=== PATIENT | female | born 1940 | race Caucasian/White ===

== ENCOUNTER → 2016-06-03 | Outpatient (CLI) | payer MEDICARE, BC ==
--- NOTE | 2016-06-03 23:02 | MR ---
EXAMINATION TYPE: MR lumbar spine wo con DATE OF EXAM: 06/03/2016 9:37 PM COMPARISON: NONE HISTORY: Uterine cancer with abnormal imaging per order. Left buttocks pain per patient. TECHNIQUE: Multiplanar, multisequence imaging of the lumbar spine is performed without IV contrast. I V contrast cannot be given due to poor renal function. FINDINGS: Exam is suboptimal as there is marked artifact present. Survey images shows splenomegaly. S agittal images of the lumbar spine show vertebral body heights and alignment to appear satisfactory. There is multilevel disc desiccation with relative sparing of L4-L5 level. Disc space heights are mayela rly well-maintained. No significant posterior disc herniations are seen on sagittal images. The conu s medullaris is not identified with certainty. The bone marrow signal intensity is abnormal with mar ked low T1 and T2 signal diffusely identified. Axial images are markedly suboptimal. There is suggestion of multilevel fairly moderate facet arthrop athy mid to lower lumbar levels. There is some cortical thinning in both kidneys present. Central cys tic change of right kidney is suspicious for underlying hydronephrosis, follow-up advised. IMPRESSION: Markedly suboptimal study, marked low T1 and T2 signal raises concern for myeloproliferat jhon disorder especially given finding of splenomegaly. Clinical correlation advised. Possible moderat e to severe right-sided hydronephrosis. Renal ultrasound follow-up advised.
== END | disposition home or self-care (01) ==
LOC: RADMRIMAIN 19:42
PROVIDERS: ATTEND Internal Medicine Hematology & Oncology
DX: C54.9 Malignant neoplasm of corpus uteri, unspecified (principal)
CPT/HCPCS: 72148; 82565

== ENCOUNTER 2016-09-23 13:00 | Inpatient (IN) | payer MEDICARE, BC ==
[2016-09-23] MEDS ORDERED: SODIUM CHLORIDE 0.9% 1,000 ML IV ONE ×2 (14:10→15:05)
[2016-09-23 14:14] LABS: Anisocytosis Slight; Basophils # (A) 0.1 k/uL (0-0.2); Basophils % (A) 1 %; CHCM 30.7; Eosinophils # (A) 0.2 k/uL (0-0.7); Eosinophils % (A) 2 %; HCT 32.8 % (34.0-46.0); HDW 3.18; HGB 10.1 gm/dL (11.4-16.0); Hypochromasia Moderate; Luc # (Auto) 0.12; Luc % (Auto) 1; Lymphocytes # (A) 0.5 k/uL (1.0-4.8); Lymphocytes % (A) 5 %; MCH 32.1 pg (25.0-35.0); MCHC 30.7 g/dL (31.0-37.0); MCV 104.7 fL (80.0-100.0); Macrocytosis Moderate; Mean Platelet Volume 7.8; Monocytes # (A) 0.5 k/uL (0-1.0); Monocytes % (A) 4 %; Neutrophils # (A) 10.2 k/uL (1.3-7.7); Neutrophils % (A) 88 %; RBC 3.14 m/uL (3.80-5.40); RDW 17.8 % (11.5-15.5); WBC 11.6 k/uL (3.8-10.6); WBC (Perox) 12.09
--- NOTE | 2016-09-23 14:14 | ED ---
General Adult HPI - General Chief complaint: Wound/Laceration Stated complaint: wound infection Time Seen by Provider: 09/23/16 13:34 Source: patient, family, RN notes reviewed Mode of arrival: wheelchair Limitations: no limitations - History of Present Illness Initial comments: The patient is 76-year-old female presents to the emergency room for evaluation of infected wound over her right hip area. Patient states the wounds started off as small boils. Patient states that she originally was diagnosed with shingles. Patient states the areas have became extremely infected. Patient states she's been treated with antibiotics and valacyclovir. Patient states she has been following up at the [facility] with Dr. Angelo. Patient states today they rechecked her wounds and told her to come to the emergency room to be admitted and have the areas debrided. Patient states a few of the wounds have turned black. Patient states the areas were packed and covered at the wound center. Patient denies fevers or chills. Patient denies headache or dizziness. Patient denies nausea or vomiting. - Related Data Home Medications Medication Instructions Recorded Confirmed Atenolol [Tenormin] 12.5 mg PO DAILY 06/26/14 09/23/16 Gabapentin [Neurontin] 300 mg PO TID 06/26/14 09/23/16 Glimepiride [Amaryl] 1.5 mg PO BID 06/26/14 09/23/16 Insulin Glargine [Lantus] 12 unit SQ HS 06/26/14 09/23/16 Pravastatin Sodium [Pravachol] 20 mg PO HS 06/26/14 09/23/16 Aspirin [Low Dose Aspirin EC] 81 mg PO DAILY 09/16/16 09/23/16 Cyclobenzaprine [Flexeril] 10 mg PO HS 09/16/16 09/23/16 Sevelamer HCl [Renagel] 400 mg PO DAILY 09/16/16 09/23/16 Nfyxt-Z-Xaivdgnalonvh [Beano] 600 unit PO AC-TID 09/23/16 09/23/16 Docusate [Colace] 100 mg PO DAILY 09/23/16 09/23/16 Ergocalciferol [Vitamin D2] 50,000 unit PO MO 09/23/16 09/23/16 Megabind 1 dose PO DIRECTED 09/23/16 09/23/16 Midodrine HCl [ProAmatine] 10 mg PO MOWEFR 09/23/16 09/23/16 Allergies Allergy/AdvReac Type Severity Reaction Status Date / Time ciprofloxacin [From Cipro] Allergy Swelling Verified 09/23/16 14:00 ciprofloxacin HCl Allergy Swelling Verified 09/23/16 14:00 [From Cipro] Penicillins Allergy Rash/Hives Verified 09/23/16 14:00 adhesive AdvReac SKIN Verified 09/23/16 14:00 IRRITATION Review of Systems ROS Statement: Those systems with pertinent positive or pertinent negative responses have been documented in the HPI. ROS Other: All systems not noted in ROS Statement are negative. 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 DIALYSIS Thu, DIALYSIS PORT RIGHT ARM. PORT A CATH LEFT CHEST. HX DVT LAILA LEGS History of Any Multi-Drug Resistant Organisms: MRSA Date of last positivie culture/infection: 04/27/2011 MDRO Source:: SPUTUM/LUNGS Past Surgical History: Bladder Surgery, Bowel Resection, Hysterectomy, Joint Replacement, Orthopedic Surgery Additional Past Surgical History / Comment(s): LAILA KNEE REPLACEMENT, LEFT FOOT FUSION, LEFT CATARACT REMOVED, STENTS IN KIDNEY, UROSTOMY, COLOSTOMY, DIALYSIS PORT, PORT A CATH Past Anesthesia/Blood Transfusion Reactions: No Reported Reaction Past Psychological History: No Psychological Hx Reported Smoking Status: Never smoker Past Alcohol Use History: Rare Past Drug Use History: None Reported - Past Family History Mother Additional Family Medical History / Comment(s): in a motor vehicle accident Father Family Medical History: Unable to Obtain General Exam - General Exam Comments Initial Comments: Sitting in exam room, no acute distress. Limitations: no limitations General appearance: alert, in no apparent distress Head exam: Present: atraumatic, normocephalic, normal inspection Eye exam: Present: normal appearance ENT exam: Present: normal exam Neck exam: Present: normal inspection Respiratory exam: Present: normal lung sounds bilaterally. Absent: respiratory distress Cardiovascular Exam: Present: regular rate, normal rhythm, normal heart sounds Right Upper Leg exam: Absent: normal inspection (necrosing ulcerating lesions on the lateral upper leg with surrounding erythema. ) Knee exam: Present: normal inspection Lower Leg exam: Present: normal inspection Ankle exam: Present: normal inspection Neurovascular tendon exam: Present: no vascular compromise. Absent: pulse deficit, abnormal cap refill Back exam: Present: normal inspection Neurological exam: Present: alert, oriented X3, CN II-XII intact Psychiatric exam: Present: normal affect, normal mood Skin exam: Present: warm, dry Course Vital Signs 09/23/16 09/23/16 13:14 15:00 Temperature 97.5 F L 98.2 F Pulse Rate 60 63 Respiratory 20 18 Rate Blood Pressure 94/50 104/54 O2 Sat by Pulse 100 97 Oximetry Medical Decision Making - Medical Decision Making Patient is a 76-year-old female presents emergency room for evaluation of infected right hip wound. Lactic 2.5. WBC slightly elevated. Patient will be admitted with IV antibiotics. Patient does have a hx of CKF and is on dialysis 3 times a week. Will consult Nephrology. Dr. Tsang discussed case with Dr. Angelo and Suraj. - Lab Data Result diagrams: 09/23/16 13:35 09/23/16 13:35 Lab Results 09/23/16 09/23/16 09/23/16 Range/Units 13:35 13:35 13:35 WBC 11.6 H (3.8-10.6) k/uL RBC 3.14 L (3.80-5.40) m/uL Hgb 10.1 L (11.4-16.0) gm/dL Hct 32.8 L (34.0-46.0) % MCV 104.7 H (80.0-100.0) fL MCH 32.1 (25.0-35.0) pg MCHC 30.7 L (31.0-37.0) g/dL RDW 17.8 H (11.5-15.5) % Plt Count 143 L (150-450) k/uL Neutrophils % 88 % Lymphocytes % 5 % Monocytes % 4 % Eosinophils % 2 % Basophils % 1 % Neutrophils # 10.2 H (1.3-7.7) k/uL Lymphocytes # 0.5 L (1.0-4.8) k/uL Monocytes # 0.5 (0-1.0) k/uL Eosinophils # 0.2 (0-0.7) k/uL Basophils # 0.1 (0-0.2) k/uL Hypochromasia Moderate Anisocytosis Slight Macrocytosis Moderate Sodium 136 L (137-145) mmol/L Potassium 3.6 (3.5-5.1) mmol/L Chloride 94 L (98-107) mmol/L Carbon Dioxide 28 (22-30) mmol/L Anion Gap 14 mmol/L BUN 29 H (7-17) mg/dL Creatinine 3.00 H (0.52-1.04) mg/dL Est GFR (MDRD) Af Amer 18 (>60 ml/min/1.73 sqM) Est GFR (MDRD) Non-Af 15 (>60 ml/min/1.73 sqM) Glucose 201 H (74-99) mg/dL POC Glucose (mg/dL) (75-99) mg/dL POC Glu Mixing Machine Tender Cork Gasket ID Plasma Lactic Acid Cameron 2.5 H* (0.7-2.0) mmol/L Calcium 9.0 (8.4-10.2) mg/dL Total Bilirubin 2.0 H (0.2-1.3) mg/dL AST 30 (14-36) U/L ALT 25 (9-52) U/L Alkaline Phosphatase 238 H (38-126) U/L C-Reactive Protein 196.7 H (<10.0) mg/L Total Protein 6.8 (6.3-8.2) g/dL Albumin 3.2 L (3.5-5.0) g/dL 09/23/16 Range/Units 15:10 WBC (3.8-10.6) k/uL RBC (3.80-5.40) m/uL Hgb (11.4-16.0) gm/dL Hct (34.0-46.0) % MCV (80.0-100.0) fL MCH (25.0-35.0) pg MCHC (31.0-37.0) g/dL RDW (11.5-15.5) % Plt Count (150-450) k/uL Neutrophils % % Lymphocytes % % Monocytes % % Eosinophils % % Basophils % % Neutrophils # (1.3-7.7) k/uL Lymphocytes # (1.0-4.8) k/uL Monocytes # (0-1.0) k/uL Eosinophils # (0-0.7) k/uL Basophils # (0-0.2) k/uL Hypochromasia Anisocytosis Macrocytosis Sodium (137-145) mmol/L Potassium (3.5-5.1) mmol/L Chloride (98-107) mmol/L Carbon Dioxide (22-30) mmol/L Anion Gap mmol/L BUN (7-17) mg/dL Creatinine (0.52-1.04) mg/dL Est GFR (MDRD) Af Amer (>60 ml/min/1.73 sqM) Est GFR (MDRD) Non-Af (>60 ml/min/1.73 sqM) Glucose (74-99) mg/dL POC Glucose (mg/dL) 137 H (75-99) mg/dL POC Glu Mixing Machine Tender Cork Gasket ID Taye Suze Plasma Lactic Acid Cameron (0.7-2.0) mmol/L Calcium (8.4-10.2) mg/dL Total Bilirubin (0.2-1.3) mg/dL AST (14-36) U/L ALT (9-52) U/L Alkaline Phosphatase (38-126) U/L C-Reactive Protein (<10.0) mg/L Total Protein (6.3-8.2) g/dL Albumin (3.5-5.0) g/dL Disposition Clinical Impression: Wound infection Disposition: ADMITTED IP TO THIS [facility] Condition: Stable Referrals: Tae Diane DO [Primary Care Provider] - 1-2 days Decision Date: 09/23/16
[2016-09-23 14:29] LABS: Potassium 3.6 mmol/L (3.5-5.1); Total Protein 6.8 g/dL (6.3-8.2)
[2016-09-23] MEDS ORDERED: AZTREONAM 2 GM in SODIUM CHLORIDE 0.9% 100 ML IVPB STA (14:55)
[2016-09-23] MEDS ORDERED: NALOXONE 0.4 MG/ML 1 ML VIAL IV PRN (14:56)
[2016-09-23] MEDS ORDERED: IV VANCOMYCIN PER PHARMACY 1 EACH MISC MISCELLANE PRN (15:02)
[2016-09-23 15:04] LABS: C Reactive Protein 196.7 mg/L (<10.0)
[2016-09-23 15:13] LABS: Glucose,Whole Blood 137 mg/dL (75-99)
[2016-09-23] MEDS ORDERED: VANCOMYCIN 1,500 MG in SODIUM CHLORIDE 0.9% 250 ML IVPB ONE (16:00)
[2016-09-23] MEDS: SODIUM CHLORIDE 0.9% 1,000 ML IV SCH (16:46)
[2016-09-23] MEDS: HYDROmorphone 1 MG/ML 1 ML SYRINGE IV PRN (18:38)
[2016-09-23] MEDS: INSULIN LISPRO (humaLOG) 300 UNIT/3 ML VIAL SQ SCH ×2 (18:43→22:02)
[2016-09-23 19:34] LABS: Particle Count 335966; WBC,Urine >182 /hpf (0-5)
[2016-09-23 19:43] LABS: Appearance,Urine Turbid (Clear)
[2016-09-23 19:45] LABS: UA Billing (MACRO vs. MICRO) MICRO
--- NOTE | 2016-09-23 20:51 | P.GSCN ---
History of Present Illness Reason for Consult: Decubitus right hip History of present illness: The patient is a 76-year-old white female who presents to the emergency room for evaluation of an infected wound of her right hip area. She has been seen in the wound clinic for this and has had failure of resolution and was therefore admitted for debridement. She states that was originally diagnosed as shingles. The area that became infected. She has been treated with antibiotics and valacyclovir. The patient states that the areas were packed and covered at the wound center. She denies fever or chills. Review of systems: Lungs: Prior PE cardiac: No history given GI: Patient has colostomy : Endometrial cancer with bladder and bowel history of chemo and radiation has colostomy and urostomy she also undergoes dialysis Thursday and Thursday Social history: Smoking: Negative Alcohol: Occasional Drug history: Negative Review of Systems - Constitutional Reports as per HPI - Respiratory Reports as per HPI - Gastrointestinal Reports as per HPI - Genitourinary Genitourinary Comment(s): Endometrial cancer Genitourinary: Reports as per HPI Past Medical History Past Medical History: Cancer, Diabetes Mellitus, Dialysis, Deep Vein Thrombosis (DVT), Hyperlipidemia, Osteoarthritis (OA), Pulmonary Embolus (PE), Renal Disease Additional Past Medical History / Comment(s): dx mar 1999 w/ENDOMETRIAL CA WENT TO [facility] had SX(COLOSTOMY/UROSTOMY) / CHEMO / RADIATION . DIALYSIS Thu, DIALYSIS PORT RIGHT ARM. PORT A CATH LEFT CHEST. HX DVT LAILA LEGS, anemia-"iron supplemtnts w/dialysis", murmur, sinus peoblems, hiatakl hernia, colon polyps. ?SHINGLES RECENTLY" ONE DR SAID IT WAS SHINGLES AND ANOTHER DID' NT THINK IT WAS", RT HIP WOUND History of Any Multi-Drug Resistant Organisms: MRSA Year Discovered:: 04/27/2011 MDRO Source:: SPUTUM/LUNGS Past Surgical History: Bladder Surgery, Bowel Resection, Heart Catheterization, Hysterectomy, Joint Replacement, Orthopedic Surgery, Tonsillectomy Additional Past Surgical History / Comment(s): LAILA KNEE REPLACEMENT, LEFT FOOT FUSION,LAILA CATARACTS REMOVED, STENTS IN KIDNEY, UROSTOMY, COLOSTOMY, DIALYSIS PORT, PORT A CATH,GREEN FIELD FILTER, COLONOSCOPY/POLYPECTOMY. Past Anesthesia/Blood Transfusion Reactions: Motion Sickness Additional Past Anesthesia/Blood Transfusion Reaction / Comm: MOTION SICKENSS WHEN ON CRUISE Past Psychological History: No Psychological Hx Reported Smoking Status: Never smoker Past Alcohol Use History: Rare Past Drug Use History: None Reported - Past Family History Mother Additional Family Medical History / Comment(s): in a motor vehicle accident Father Family Medical History: Unable to Obtain Additional Family Medical History / Comment(s): FROM NATRUAL CAUSES Medications and Allergies Home Medications Medication Instructions Recorded Confirmed Type Atenolol [Tenormin] 12.5 mg PO DAILY 06/26/14 09/23/16 History Gabapentin [Neurontin] 300 mg PO TID 06/26/14 09/23/16 History Glimepiride [Amaryl] 1.5 mg PO BID 06/26/14 09/23/16 History Insulin Glargine [Lantus] 12 unit SQ HS 06/26/14 09/23/16 History Pravastatin Sodium [Pravachol] 20 mg PO HS 06/26/14 09/23/16 History Aspirin [Low Dose Aspirin EC] 81 mg PO DAILY 09/16/16 09/23/16 History Cyclobenzaprine [Flexeril] 10 mg PO HS 09/16/16 09/23/16 History Sevelamer HCl [Renagel] 400 mg PO DAILY 09/16/16 09/23/16 History Jetda-V-Qfpcgmgrjhstn [Beano] 600 unit PO AC-TID 09/23/16 09/23/16 History Docusate [Colace] 100 mg PO DAILY 09/23/16 09/23/16 History Ergocalciferol [Vitamin D2] 50,000 unit PO MO 09/23/16 09/23/16 History Megabind 1 dose PO DIRECTED 09/23/16 09/23/16 History Midodrine HCl [ProAmatine] 10 mg PO MOWEFR 09/23/16 09/23/16 History Allergies Allergy/AdvReac Type Severity Reaction Status Date / Time ciprofloxacin [From Cipro] Allergy Swelling Verified 09/23/16 14:00 ciprofloxacin HCl Allergy Swelling Verified 09/23/16 14:00 [From Cipro] Penicillins Allergy Rash/Hives Verified 09/23/16 14:00 adhesive AdvReac SKIN Verified 09/23/16 14:00 IRRITATION Surgical - Exam Vital Signs Temp Pulse Resp BP Pulse Ox 97.5 F L 60 20 94/50 100 09/23/16 13:14 09/23/16 13:14 09/23/16 13:14 09/23/16 13:14 09/23/16 13:14 - General no distress - Eyes normal ocular movement - ENT normal pinna, normal nares - Neck no masses, trachea midline, no lymphadectomy - Respiratory normal expansion, normal respiratory effort, clear to auscultation - Cardiovascular Rhythm: regular Heart Sounds: normal: S1, S2 - Abdomen Colostomy and urostomy in place Soft Positive bowel sounds Positive lower midline abdominal incision - Integumentary Right lateral hip approximately 12 x 8 cm decubitus with some dark eschar surrounding this In the right thigh ulcerating lesions on the medial aspect - Psychiatric oriented to time, oriented to person, oriented to place, speech is normal Results - Labs 09/23/16 13:35 09/23/16 13:35 Abnormal Lab Results - Last 24 Hours (Table) 09/23/16 09/23/16 09/23/16 Range/Units 13:35 13:35 13:35 WBC 11.6 H (3.8-10.6) k/uL RBC 3.14 L (3.80-5.40) m/uL Hgb 10.1 L (11.4-16.0) gm/dL Hct 32.8 L (34.0-46.0) % MCV 104.7 H (80.0-100.0) fL MCHC 30.7 L (31.0-37.0) g/dL RDW 17.8 H (11.5-15.5) % Plt Count 143 L (150-450) k/uL Neutrophils # 10.2 H (1.3-7.7) k/uL Lymphocytes # 0.5 L (1.0-4.8) k/uL Sodium 136 L (137-145) mmol/L Chloride 94 L (98-107) mmol/L BUN 29 H (7-17) mg/dL Creatinine 3.00 H (0.52-1.04) mg/dL Glucose 201 H (74-99) mg/dL POC Glucose (mg/dL) (75-99) mg/dL Plasma Lactic Acid Cameron 2.5 H* (0.7-2.0) mmol/L Total Bilirubin 2.0 H (0.2-1.3) mg/dL Alkaline Phosphatase 238 H (38-126) U/L C-Reactive Protein 196.7 H (<10.0) mg/L Albumin 3.2 L (3.5-5.0) g/dL Urine Appearance (Clear) Urine WBC (0-5) /hpf Urine WBC Clumps (None) /hpf 09/23/16 09/23/16 Range/Units 15:10 19:05 WBC (3.8-10.6) k/uL RBC (3.80-5.40) m/uL Hgb (11.4-16.0) gm/dL Hct (34.0-46.0) % MCV (80.0-100.0) fL MCHC (31.0-37.0) g/dL RDW (11.5-15.5) % Plt Count (150-450) k/uL Neutrophils # (1.3-7.7) k/uL Lymphocytes # (1.0-4.8) k/uL Sodium (137-145) mmol/L Chloride (98-107) mmol/L BUN (7-17) mg/dL Creatinine (0.52-1.04) mg/dL Glucose (74-99) mg/dL POC Glucose (mg/dL) 137 H (75-99) mg/dL Plasma Lactic Acid Cameron (0.7-2.0) mmol/L Total Bilirubin (0.2-1.3) mg/dL Alkaline Phosphatase (38-126) U/L C-Reactive Protein (<10.0) mg/L Albumin (3.5-5.0) g/dL Urine Appearance Turbid H (Clear) Urine WBC >182 H (0-5) /hpf Urine WBC Clumps Many H (None) /hpf Diabetes panel 09/23/16 Range/Units 13:35 Sodium 136 L (137-145) mmol/L Potassium 3.6 (3.5-5.1) mmol/L Chloride 94 L (98-107) mmol/L Carbon Dioxide 28 (22-30) mmol/L BUN 29 H (7-17) mg/dL Creatinine 3.00 H (0.52-1.04) mg/dL Glucose 201 H (74-99) mg/dL Calcium 9.0 (8.4-10.2) mg/dL AST 30 (14-36) U/L ALT 25 (9-52) U/L Alkaline Phosphatase 238 H (38-126) U/L Total Protein 6.8 (6.3-8.2) g/dL Albumin 3.2 L (3.5-5.0) g/dL Calcium panel 09/23/16 Range/Units 13:35 Calcium 9.0 (8.4-10.2) mg/dL Albumin 3.2 L (3.5-5.0) g/dL Pituitary panel 09/23/16 Range/Units 13:35 Sodium 136 L (137-145) mmol/L Potassium 3.6 (3.5-5.1) mmol/L Chloride 94 L (98-107) mmol/L Carbon Dioxide 28 (22-30) mmol/L BUN 29 H (7-17) mg/dL Creatinine 3.00 H (0.52-1.04) mg/dL Glucose 201 H (74-99) mg/dL Calcium 9.0 (8.4-10.2) mg/dL Adrenal panel 09/23/16 Range/Units 13:35 Sodium 136 L (137-145) mmol/L Potassium 3.6 (3.5-5.1) mmol/L Chloride 94 L (98-107) mmol/L Carbon Dioxide 28 (22-30) mmol/L BUN 29 H (7-17) mg/dL Creatinine 3.00 H (0.52-1.04) mg/dL Glucose 201 H (74-99) mg/dL Calcium 9.0 (8.4-10.2) mg/dL Total Bilirubin 2.0 H (0.2-1.3) mg/dL AST 30 (14-36) U/L ALT 25 (9-52) U/L Alkaline Phosphatase 238 H (38-126) U/L Total Protein 6.8 (6.3-8.2) g/dL Albumin 3.2 L (3.5-5.0) g/dL Assessment and Plan Plan: Impression/plan: 1. 76-year-old white female with infected right hip wound 2. History of renal failure on dialysis 3 times a week 3. History of endometrial cancer with colostomy and urostomy Plan: 1. Medical management as per Dr. Juan Francisco asthma 2. Will discuss case with Dr. Angelo in the morning
[2016-09-23 21:22] LABS: Hemoglobin A1C 5.6 % (4.2-6.1)
[2016-09-23 21:35] LABS: Glucose,Whole Blood 156 mg/dL (75-99)
[2016-09-24 06:14] LABS: Anisocytosis Slight; Basophils % (A) 1 %; CH 31.9; CHCM 30.4; Eosinophils # (A) 0.2 k/uL (0-0.7); Eosinophils % (A) 3 %; HCT 28.1 % (34.0-46.0); HDW 3.14; HGB 8.8 gm/dL (11.4-16.0); Hypochromasia Marked; Luc # (Auto) 0.11; Luc % (Auto) 1; Lymphocytes # (A) 0.4 k/uL (1.0-4.8); Lymphocytes % (A) 5 %; MCHC 31.3 g/dL (31.0-37.0); MCV 105.4 fL (80.0-100.0); Macrocytosis Marked; Mean Platelet Volume 7.7; Monocytes # (A) 0.5 k/uL (0-1.0); Monocytes % (A) 6 %; Neutrophils # (A) 6.7 k/uL (1.3-7.7); Neutrophils % (A) 84 %; RBC 2.67 m/uL (3.80-5.40); RDW 18.1 % (11.5-15.5); WBC (Perox) 7.81
[2016-09-24 06:24] LABS: Calcium 8.5 mg/dL (8.4-10.2); Potassium 3.4 mmol/L (3.5-5.1)
[2016-09-24 07:08] LABS: Polychromasia Present
[2016-09-24 07:11] LABS: Manual Review Performed
[2016-09-24 07:35] LABS: Glucose,Whole Blood 186 mg/dL (75-99)
[2016-09-24] MEDS: INSULIN LISPRO (humaLOG) 300 UNIT/3 ML VIAL SQ SCH ×4 (08:25→21:31)
[2016-09-24] MEDS: HYDROmorphone 1 MG/ML 1 ML SYRINGE IV PRN ×2 (09:07→18:29)
[2016-09-24] MEDS ORDERED: POTASSIUM CHLORIDE ER 20 MEQ TAB.ER PO STA (09:41)
[2016-09-24] MEDS ORDERED: DARBEPOETIN ALFA 40 MCG/0.4 ML SYRINGE SQ SCH (10:00)
--- NOTE | 2016-09-24 10:39 | P.NPCON ---
History of Present Illness - Reason for Consult end stage renal disease - History of Present Illness Reason for consultation: End-stage renal disease History of present illness: Patient is a 76-year-old female seen in renal consultation for end- stage renal disease. She is maintained on hemodialysis on a Thursday schedule. Right upper extremity AV fistula. Patient has a right hip wound for which she has been attending the wound center. She was evaluated yesterday and sent to the hospital for debridement. Patient states that she is quite sore at the site of the ulcerations. There has been a follow for with discharge at the site of ulcerations. She underwent hemodialysis on Thursday. Denies any chest pain or shortness of breath. No vomiting or diarrhea. Appetite is fair. No other complaints at this time. There was also concern for calciphylaxis in the past however no calcifications were noted on imaging in the past. She is also not on any calcium based binders or vitamin D supplements. Vital signs are stable. General: The patient appeared well nourished and normally developed. HEENT: Head exam is unremarkable. Neck is without jugular venous distension. LUNGS: Lungs are clear to auscultation and percussion. Breath sounds decreased. HEART: Rate and Rhythm are regular. First and second heart sounds normal. No murmurs, rubs or gallops. ABDOMEN: Abdominal exam reveals normal bowel sounds. Non-tender and non- distended. No evidence of peritonitis. EXTREMITITES: No clubbing, cyanosis, or edema. Right hip necrotic ulcerations noted with no obvious drainage at this time. Foul odor present. Past Medical History Past Medical History: Cancer, Diabetes Mellitus, Dialysis, Deep Vein Thrombosis (DVT), Hyperlipidemia, Osteoarthritis (OA), Pulmonary Embolus (PE), Renal Disease Additional Past Medical History / Comment(s): dx mar 1999 w/ENDOMETRIAL CA WENT TO [facility] had SX(COLOSTOMY/UROSTOMY) / CHEMO / RADIATION . DIALYSIS Thu, DIALYSIS PORT RIGHT ARM. PORT A CATH LEFT CHEST. HX DVT LAILA LEGS, anemia-"iron supplemtnts w/dialysis", murmur, sinus peoblems, hiatakl hernia, colon polyps. ?SHINGLES RECENTLY" ONE DR SAID IT WAS SHINGLES AND ANOTHER DID' NT THINK IT WAS", RT HIP WOUND History of Any Multi-Drug Resistant Organisms: MRSA Date of last positivie culture/infection: 04/27/2011 MDRO Source:: SPUTUM/LUNGS Past Surgical History: Bladder Surgery, Bowel Resection, Heart Catheterization, Hysterectomy, Joint Replacement, Orthopedic Surgery, Tonsillectomy Additional Past Surgical History / Comment(s): LAILA KNEE REPLACEMENT, LEFT FOOT FUSION,LAILA CATARACTS REMOVED, STENTS IN KIDNEY, UROSTOMY, COLOSTOMY, DIALYSIS PORT, PORT A CATH,GREEN FIELD FILTER, COLONOSCOPY/POLYPECTOMY. Past Anesthesia/Blood Transfusion Reactions: Motion Sickness Additional Past Anesthesia/Blood Transfusion Reaction / Comment(s): MOTION SICKENSS WHEN ON CRUISE Past Psychological History: No Psychological Hx Reported Smoking Status: Never smoker Past Alcohol Use History: Rare Past Drug Use History: None Reported - Past Family History Mother Additional Family Medical History / Comment(s): in a motor vehicle accident Father Family Medical History: Unable to Obtain Additional Family Medical History / Comment(s): FROM NATRUAL CAUSES Medications and Allergies Home Medications Medication Instructions Recorded Confirmed Type Atenolol [Tenormin] 12.5 mg PO DAILY 06/26/14 09/23/16 History Gabapentin [Neurontin] 300 mg PO TID 06/26/14 09/23/16 History Glimepiride [Amaryl] 1.5 mg PO BID 06/26/14 09/23/16 History Insulin Glargine [Lantus] 12 unit SQ HS 06/26/14 09/23/16 History Pravastatin Sodium [Pravachol] 20 mg PO HS 06/26/14 09/23/16 History Aspirin [Low Dose Aspirin EC] 81 mg PO DAILY 09/16/16 09/23/16 History Cyclobenzaprine [Flexeril] 10 mg PO HS 09/16/16 09/23/16 History Sevelamer HCl [Renagel] 400 mg PO DAILY 09/16/16 09/23/16 History Clwyv-Q-Bstslqjqceoyu [Beano] 600 unit PO AC-TID 09/23/16 09/23/16 History Docusate [Colace] 100 mg PO DAILY 09/23/16 09/23/16 History Ergocalciferol [Vitamin D2] 50,000 unit PO MO 09/23/16 09/23/16 History Megabind 1 dose PO DIRECTED 09/23/16 09/23/16 History Midodrine HCl [ProAmatine] 10 mg PO MOWEFR 09/23/16 09/23/16 History Allergies Allergy/AdvReac Type Severity Reaction Status Date / Time ciprofloxacin [From Cipro] Allergy Swelling Verified 09/23/16 14:00 ciprofloxacin HCl Allergy Swelling Verified 09/23/16 14:00 [From Cipro] Penicillins Allergy Rash/Hives Verified 09/23/16 14:00 adhesive AdvReac SKIN Verified 09/23/16 14:00 IRRITATION Physical Exam Vitals: Vital Signs Temp Pulse Pulse Resp BP BP Pulse Ox 09/24/16 07:00 96.3 F L 62 18 91 L 09/23/16 23:00 97.7 F 65 16 97/48 93 L 09/23/16 19:57 58 L 19 09/23/16 18:22 97.7 F 58 L 19 98/52 99 09/23/16 17:46 67 18 106/52 94 L 09/23/16 15:59 59 L 18 105/67 96 09/23/16 15:00 98.2 F 63 18 104/54 97 09/23/16 13:14 97.5 F L 60 20 94/50 100 Intake and Output 09/23/16 09/24/16 09/24/16 22:59 06:59 14:59 Intake Total 120 0 Balance 120 0 Intake: Oral 120 0 Other: Voiding Method Ileal Conduit (Right) Ileal Conduit (Right) Weight 74.5 kg Results - Lab Results Most recent lab results Calcium 8.5 mg/dL (8.4-10.2) 09/24/16 06:00 09/24/16 06:00 09/24/16 06:00 Assessment and Plan Plan: Assessment: #1. End-stage renal disease maintained on hemodialysis on a Thursday schedule via right upper extremity AV fistula. #2. Right hip wound. There has been concern for calciphylaxis in the past however the images were not suggestive of it. She is not on any calcium based binders or vitamin D supplementation. With previous debridement, the tissue was sent for pathology. Results are pending. #3. Anemia of chronic kidney disease. Rule out iron deficiency. #4. Chronic kidney disease mineral bone disease. #5. Chronic hypotension maintained on Midodrine. Plan: Hemodialysis today with goal 2 liters ultrafiltration. Surgery following. Possible debridement today. It'll be sent for pathology again. She continues to remain off vitamin D supplements as well as calcium based binders. She is also maintained on Sensipar as an outpatient for secondary hyperparathyroidism, which I will resume inpatient as well. If pathology is suggestive of calciphylaxis, sodium thiosulfate will be arranged to be given with dialysis as an outpatient. Check iron studies. Start Aranesp. Thank you for the consultation. I will continue to follow the patient with you during her hospital stay.
[2016-09-24 10:54] LABS: INR 1.3 (<1.1); Prothrombin Time 12.4 sec (9.0-12.0)
--- NOTE | 2016-09-24 11:00 | P.CRDCN ---
History of Present Illness Consult date: 09/24/16 History of present illness: This is a pleasant 76-year-old female patient who sees Dr. VC Atwood as an outpatient who was referred to the hospital for a nonhealing wound over the right hip area. The patient has been struggling with this for the last 4-6 weeks and she has been following up at the wound clinic, and because the wound has not been healing well she was referred to the hospital where she was seen already by a surgeon and the plan is to proceed with debridement tomorrow. The patient is known to have end stage renal disease on dialysis, diabetes, hypertension, and dyslipidemia. She denies having any chest pain or discomfort or difficulty breathing at this point. Hemodynamically she seems to be stable with marginally low blood pressure. I will obtain a 12 please EKG, and echocardiogram was Doppler, obtain the previous medical records from the office, and follow-up with the patient where we can clear her to have the surgery as soon as possible. Past Medical History Past Medical History: Cancer, Diabetes Mellitus, Dialysis, Deep Vein Thrombosis (DVT), Hyperlipidemia, Osteoarthritis (OA), Pulmonary Embolus (PE), Renal Disease Additional Past Medical History / Comment(s): dx mar 1999 w/ENDOMETRIAL CA WENT TO [facility] had SX(COLOSTOMY/UROSTOMY) / CHEMO / RADIATION . DIALYSIS Thu, DIALYSIS PORT RIGHT ARM. PORT A CATH LEFT CHEST. HX DVT LAILA LEGS, anemia-"iron supplemtnts w/dialysis", murmur, sinus peoblems, hiatakl hernia, colon polyps. ?SHINGLES RECENTLY" ONE DR SAID IT WAS SHINGLES AND ANOTHER DID' NT THINK IT WAS", RT HIP WOUND History of Any Multi-Drug Resistant Organisms: MRSA Date of last positivie culture/infection: 04/27/2011 MDRO Source:: SPUTUM/LUNGS Past Surgical History: Bladder Surgery, Bowel Resection, Heart Catheterization, Hysterectomy, Joint Replacement, Orthopedic Surgery, Tonsillectomy Additional Past Surgical History / Comment(s): LAILA KNEE REPLACEMENT, LEFT FOOT FUSION,LAILA CATARACTS REMOVED, STENTS IN KIDNEY, UROSTOMY, COLOSTOMY, DIALYSIS PORT, PORT A CATH,GREEN FIELD FILTER, COLONOSCOPY/POLYPECTOMY. Past Anesthesia/Blood Transfusion Reactions: Motion Sickness Additional Past Anesthesia/Blood Transfusion Reaction / Comment(s): MOTION SICKENSS WHEN ON CRUISE Past Psychological History: No Psychological Hx Reported Smoking Status: Never smoker Past Alcohol Use History: Rare Past Drug Use History: None Reported - Past Family History Mother Additional Family Medical History / Comment(s): in a motor vehicle accident Father Family Medical History: Unable to Obtain Additional Family Medical History / Comment(s): FROM NATRUAL CAUSES Medications and Allergies Home Medications Medication Instructions Recorded Confirmed Type Atenolol [Tenormin] 12.5 mg PO DAILY 06/26/14 09/23/16 History Gabapentin [Neurontin] 300 mg PO TID 06/26/14 09/23/16 History Glimepiride [Amaryl] 1.5 mg PO BID 06/26/14 09/23/16 History Insulin Glargine [Lantus] 12 unit SQ HS 06/26/14 09/23/16 History Pravastatin Sodium [Pravachol] 20 mg PO HS 06/26/14 09/23/16 History Aspirin [Low Dose Aspirin EC] 81 mg PO DAILY 09/16/16 09/23/16 History Cyclobenzaprine [Flexeril] 10 mg PO HS 09/16/16 09/23/16 History Sevelamer HCl [Renagel] 400 mg PO DAILY 09/16/16 09/23/16 History Nlqsf-S-Ogmuiveosuaig [Beano] 600 unit PO AC-TID 09/23/16 09/23/16 History Docusate [Colace] 100 mg PO DAILY 09/23/16 09/23/16 History Ergocalciferol [Vitamin D2] 50,000 unit PO MO 09/23/16 09/23/16 History Megabind 1 dose PO DIRECTED 09/23/16 09/23/16 History Midodrine HCl [ProAmatine] 10 mg PO MOWEFR 09/23/16 09/23/16 History Allergies Allergy/AdvReac Type Severity Reaction Status Date / Time ciprofloxacin [From Cipro] Allergy Swelling Verified 09/23/16 14:00 ciprofloxacin HCl Allergy Swelling Verified 09/23/16 14:00 [From Cipro] Penicillins Allergy Rash/Hives Verified 09/23/16 14:00 adhesive AdvReac SKIN Verified 09/23/16 14:00 IRRITATION Physical Exam Vitals: Vital Signs Temp Pulse Pulse Resp BP BP Pulse Ox 09/24/16 07:00 96.3 F L 62 18 91 L 09/23/16 23:00 97.7 F 65 16 97/48 93 L 09/23/16 19:57 58 L 19 09/23/16 18:22 97.7 F 58 L 19 98/52 99 09/23/16 17:46 67 18 106/52 94 L 09/23/16 15:59 59 L 18 105/67 96 09/23/16 15:00 98.2 F 63 18 104/54 97 09/23/16 13:14 97.5 F L 60 20 94/50 100 Intake and Output 09/23/16 09/24/16 09/24/16 22:59 06:59 14:59 Intake Total 120 0 Balance 120 0 Intake: Oral 120 0 Other: Voiding Method Ileal Conduit (Right) Ileal Conduit (Right) Weight 74.5 kg - Constitutional General appearance: no acute distress - Respiratory Respiratory: bilateral: diminished - Cardiovascular Distant heart sounds Rhythm: regular Results 09/24/16 06:00 09/24/16 06:00 Cardiac Enzymes 09/23/16 Range/Units 13:35 AST 30 (14-36) U/L Coagulation 09/24/16 Range/Units 10:00 PT 12.4 H (9.0-12.0) sec CBC 09/23/16 09/24/16 Range/Units 13:35 06:00 WBC 11.6 H 8.0 (3.8-10.6) k/uL RBC 3.14 L 2.67 L (3.80-5.40) m/uL Hgb 10.1 L 8.8 L (11.4-16.0) gm/dL Hct 32.8 L 28.1 L (34.0-46.0) % Plt Count 143 L 123 L (150-450) k/uL Comprehensive Metabolic Panel 09/23/16 09/24/16 Range/Units 13:35 06:00 Sodium 136 L 136 L (137-145) mmol/L Potassium 3.6 3.4 L (3.5-5.1) mmol/L Chloride 94 L 96 L (98-107) mmol/L Carbon Dioxide 28 29 (22-30) mmol/L BUN 29 H 38 H (7-17) mg/dL Creatinine 3.00 H 3.75 H (0.52-1.04) mg/dL Glucose 201 H 181 H (74-99) mg/dL Calcium 9.0 8.5 (8.4-10.2) mg/dL AST 30 (14-36) U/L ALT 25 (9-52) U/L Alkaline Phosphatase 238 H (38-126) U/L Total Protein 6.8 (6.3-8.2) g/dL Albumin 3.2 L (3.5-5.0) g/dL Current Medications Generic Name Dose Route Start Last Admin Trade Name Freq PRN Reason Stop Dose Admin Cinacalcet 30 mg 09/24/16 11:00 Sensipar PO DAILY [facility] Darbepoetin Kirt 40 mcg 09/24/16 10:00 Aranesp SQ Q7D [facility] Hydromorphone HCl 1 mg 09/23/16 14:56 09/24/16 09:07 Dilaudid IV 1 mg Q3HR PRN Administration Severe Pain Sodium Chloride 1,000 mls @ 20 mls/hr 09/23/16 14:10 09/23/16 14:35 Saline 0.9% IV 09/24/16 14:09 20 mls/hr .Q24H ONE Administration Sodium Chloride 1,000 mls @ 20 mls/hr 09/23/16 15:00 09/23/16 16:46 Saline 0.9% IV Not Given .Q24H [facility] Insulin Human Lispro 0 unit 09/23/16 17:30 09/24/16 08:25 Humalog SQ 2 unit ACHS [facility] Administration Protocol Midodrine 10 mg 09/24/16 12:30 Proamatine PO AC-TID [facility] Miscellaneous Information 1 each 09/23/16 15:02 Pharmacy To Dose Iv Vancomycin MISCELLANE DIRECTED PRN Per Protocol Naloxone HCl 0.2 mg 09/23/16 14:56 Narcan IV Q2M PRN Opioid Reversal Ondansetron HCl 4 mg 09/23/16 14:56 Zofran IVP Q8HR PRN Nausea And Vomiting Sodium Hypochlorite 10,000 ml 09/24/16 10:45 Dakin's 0.5% (Full Strength) MISCELLANE AC-BID CORINA Intake and Output 09/23/16 09/24/16 09/24/16 22:59 06:59 14:59 Intake Total 120 0 Balance 120 0 Intake: Oral 120 0 Other: Voiding Method Ileal Conduit (Right) Ileal Conduit (Right) Weight 74.5 kg 09/24/16 06:00 09/24/16 06:00 Assessment and Plan Plan: Assessment #1 infected right hip wound #2 end-stage renal disease #3 diabetes type 2 #4 multiple comorbidities Plan #1 obtain 12 please EKG #2 obtain an echocardiogram was Doppler #3 obtain the previous medical records from the office #4 follow-up with the patient
[2016-09-24] MEDS: MIDODRINE 5 MG TAB PO SCH ×3 (11:39→17:46)
[2016-09-24] MEDS: CINACALCET 30 MG TAB PO SCH (11:39)
[2016-09-24 11:42] LABS: Phosphorous 3.9 mg/dL (2.5-4.5)
[2016-09-24 11:51] LABS: % Iron Saturation 24.8 % (20-50)
[2016-09-24] MEDS: SODIUM HYPOCHLORITE 0.5% 480 ML BOT MISCELLANE SCH ×2 (11:55→17:45)
[2016-09-24 12:48] LABS: Glucose,Whole Blood 140 mg/dL (75-99)
--- NOTE | 2016-09-24 13:54 | XR ---
EXAMINATION TYPE: XR chest 1V portable DATE OF EXAM: 09/24/2016 CLINICAL HISTORY: Presurgical study. TECHNIQUE: Single AP portable upright view of the chest is obtained. COMPARISON: Chest x-ray from March 26, 2009 FINDINGS: There is left subclavian Mediport catheter with tip in SVC. There is chronic parenchymal c hange without suspicious new focal airspace opacity, pleural effusion, or pneumothorax seen bilateral ly. There is mild cardiomegaly with atherosclerotic thoracic aorta. Osseous structures are deminerali zed. IMPRESSION: Chronic changes without suspicious acute pulmonary process.
[2016-09-24] MEDS ORDERED: ATENOLOL 12.5 MG TAB PO SCH (15:00)
[2016-09-24] MEDS ORDERED: CALCIUM CARB-MAG CARB-FOLIC 1 EACH TAB PO SCH (15:00)
[2016-09-24] MEDS ORDERED: NON-FORMULARY DRUG (Midodrine Hcl [Proamatine] 10 MG) PO SCH (15:00)
--- NOTE | 2016-09-24 15:18 | P.PN ---
<Riya Moore - Last Filed: 09/24/16 15:13> Subjective 76-year-old female being seen and examined. Dressing had just been changed by the nursing staff. Dressing to the right hip area is dry. Patient is tentatively scheduled by Dr. Bunch undergo debridement of the right hip wound on September 25. Objective - Vital Signs Vital signs: Vital Signs Temp 96.3 F L 09/24/16 07:00 Pulse 62 09/24/16 07:00 Resp 18 09/24/16 07:00 BP 97/48 09/23/16 23:00 Pulse Ox 91 L 09/24/16 07:00 Intake & Output 09/23/16 09/24/16 09/24/16 18:59 06:59 18:59 Intake Total 120 Balance 120 Weight 74.843 kg 74.5 kg Intake: Oral 120 Other: Voiding Method Ileal Conduit (Right) - Exam Physical exam 76-year-old female alert very hard hearing sitting up in bed aware the plan of care denies chest pain denies shortness of breath Lungs essentially clear adequate air movement Heart S1-S2 audible and regular Abdomen soft nontender has an ostomy left lower quadrant and urostomy in the right lower quadrant Extremities on the left forearm a cast no edema to the lower extremities - Labs CBC & Chem 7: 09/24/16 06:00 09/24/16 06:00 Labs: Abnormal Lab Results - Last 24 Hours (Table) 09/23/16 09/23/16 09/23/16 Range/Units 13:35 13:35 13:35 WBC 11.6 H (3.8-10.6) k/uL RBC 3.14 L (3.80-5.40) m/uL Hgb 10.1 L (11.4-16.0) gm/dL Hct 32.8 L (34.0-46.0) % MCV 104.7 H (80.0-100.0) fL MCHC 30.7 L (31.0-37.0) g/dL RDW 17.8 H (11.5-15.5) % Plt Count 143 L (150-450) k/uL Neutrophils # 10.2 H (1.3-7.7) k/uL Lymphocytes # 0.5 L (1.0-4.8) k/uL PT (9.0-12.0) sec Sodium 136 L (137-145) mmol/L Potassium (3.5-5.1) mmol/L Chloride 94 L (98-107) mmol/L BUN 29 H (7-17) mg/dL Creatinine 3.00 H (0.52-1.04) mg/dL Glucose 201 H (74-99) mg/dL POC Glucose (mg/dL) (75-99) mg/dL Plasma Lactic Acid Cameron 2.5 H* (0.7-2.0) mmol/L Iron (37-170) ug/dL TIBC (265-497) ug/dL Ferritin (11-264) ng/mL Total Bilirubin 2.0 H (0.2-1.3) mg/dL Alkaline Phosphatase 238 H (38-126) U/L C-Reactive Protein 196.7 H (<10.0) mg/L Albumin 3.2 L (3.5-5.0) g/dL Urine Appearance (Clear) Urine WBC (0-5) /hpf Urine WBC Clumps (None) /hpf 09/23/16 09/23/16 09/23/16 Range/Units 15:10 19:05 21:20 WBC (3.8-10.6) k/uL RBC (3.80-5.40) m/uL Hgb (11.4-16.0) gm/dL Hct (34.0-46.0) % MCV (80.0-100.0) fL MCHC (31.0-37.0) g/dL RDW (11.5-15.5) % Plt Count (150-450) k/uL Neutrophils # (1.3-7.7) k/uL Lymphocytes # (1.0-4.8) k/uL PT (9.0-12.0) sec Sodium (137-145) mmol/L Potassium (3.5-5.1) mmol/L Chloride (98-107) mmol/L BUN (7-17) mg/dL Creatinine (0.52-1.04) mg/dL Glucose (74-99) mg/dL POC Glucose (mg/dL) 137 H 156 H (75-99) mg/dL Plasma Lactic Acid Cameron (0.7-2.0) mmol/L Iron (37-170) ug/dL TIBC (265-497) ug/dL Ferritin (11-264) ng/mL Total Bilirubin (0.2-1.3) mg/dL Alkaline Phosphatase (38-126) U/L C-Reactive Protein (<10.0) mg/L Albumin (3.5-5.0) g/dL Urine Appearance Turbid H (Clear) Urine WBC >182 H (0-5) /hpf Urine WBC Clumps Many H (None) /hpf 09/24/16 09/24/16 09/24/16 Range/Units 06:00 06:00 07:25 WBC (3.8-10.6) k/uL RBC 2.67 L (3.80-5.40) m/uL Hgb 8.8 L (11.4-16.0) gm/dL Hct 28.1 L (34.0-46.0) % MCV 105.4 H (80.0-100.0) fL MCHC (31.0-37.0) g/dL RDW 18.1 H (11.5-15.5) % Plt Count 123 L (150-450) k/uL Neutrophils # (1.3-7.7) k/uL Lymphocytes # 0.4 L (1.0-4.8) k/uL PT (9.0-12.0) sec Sodium 136 L (137-145) mmol/L Potassium 3.4 L (3.5-5.1) mmol/L Chloride 96 L (98-107) mmol/L BUN 38 H (7-17) mg/dL Creatinine 3.75 H (0.52-1.04) mg/dL Glucose 181 H (74-99) mg/dL POC Glucose (mg/dL) 186 H (75-99) mg/dL Plasma Lactic Acid Cameron (0.7-2.0) mmol/L Iron (37-170) ug/dL TIBC (265-497) ug/dL Ferritin (11-264) ng/mL Total Bilirubin (0.2-1.3) mg/dL Alkaline Phosphatase (38-126) U/L C-Reactive Protein (<10.0) mg/L Albumin (3.5-5.0) g/dL Urine Appearance (Clear) Urine WBC (0-5) /hpf Urine WBC Clumps (None) /hpf 09/24/16 09/24/16 09/24/16 Range/Units 10:00 10:00 12:36 WBC (3.8-10.6) k/uL RBC (3.80-5.40) m/uL Hgb (11.4-16.0) gm/dL Hct (34.0-46.0) % MCV (80.0-100.0) fL MCHC (31.0-37.0) g/dL RDW (11.5-15.5) % Plt Count (150-450) k/uL Neutrophils # (1.3-7.7) k/uL Lymphocytes # (1.0-4.8) k/uL PT 12.4 H (9.0-12.0) sec Sodium (137-145) mmol/L Potassium (3.5-5.1) mmol/L Chloride (98-107) mmol/L BUN (7-17) mg/dL Creatinine (0.52-1.04) mg/dL Glucose (74-99) mg/dL POC Glucose (mg/dL) 140 H (75-99) mg/dL Plasma Lactic Acid Cameron (0.7-2.0) mmol/L Iron 34 L (37-170) ug/dL TIBC 137 L (265-497) ug/dL Ferritin 837 H (11-264) ng/mL Total Bilirubin (0.2-1.3) mg/dL Alkaline Phosphatase (38-126) U/L C-Reactive Protein (<10.0) mg/L Albumin (3.5-5.0) g/dL Urine Appearance (Clear) Urine WBC (0-5) /hpf Urine WBC Clumps (None) /hpf Microbiology - Last 24 Hours (Table) 09/23/16 19:05 Urine Culture - Preliminary Urine,Clean Catch Assessment and Plan Plan: Impression Present on admission infected right hip wound End-stage renal disease on hemodialysis 3 times a week Endometrial cancer with ostomy urostomy Chronic hypotension maintained on midodrine Anemia of chronic illness Chronic nonhealing right hip wound Plan Patient will be scheduled tomorrow for debridement of the right wound by Wound care taken solution as ordered Medical management as ordered Pain control Further surgical recommendations pending the statement The above dictated assessment and findings were discussed with dr julio c Impression and the plan of care have been dictated as directed. Riya Moore nurse practitioner acting as a scribe for dr bunch <Zoila Bunch W - Last Filed: 09/24/16 16:39> Objective - Vital Signs Vital signs: Vital Signs Temp 98 F 09/24/16 14:27 Pulse 62 09/24/16 14:27 Resp 19 09/24/16 14:27 BP 99/46 09/24/16 15:25 Pulse Ox 94 L 09/24/16 14:27 Intake & Output 09/23/16 09/24/16 09/24/16 18:59 06:59 18:59 Intake Total 120 160 Balance 120 160 Weight 74.843 kg 74.5 kg Intake: IV 160 Sodium Chloride 0.9% 1, 160 000 ml @ 20 mls/hr IV . Q24H ONE Rx#:[id number] Oral 120 Other: Voiding Method Ileal Conduit (Right) # Voids 0 - Labs CBC & Chem 7: 09/24/16 06:00 09/24/16 06:00 Labs: Abnormal Lab Results - Last 24 Hours (Table) 09/23/16 09/23/16 09/24/16 Range/Units 19:05 21:20 06:00 RBC 2.67 L (3.80-5.40) m/uL Hgb 8.8 L (11.4-16.0) gm/dL Hct 28.1 L (34.0-46.0) % MCV 105.4 H (80.0-100.0) fL RDW 18.1 H (11.5-15.5) % Plt Count 123 L (150-450) k/uL Lymphocytes # 0.4 L (1.0-4.8) k/uL PT (9.0-12.0) sec Sodium (137-145) mmol/L Potassium (3.5-5.1) mmol/L Chloride (98-107) mmol/L BUN (7-17) mg/dL Creatinine (0.52-1.04) mg/dL Glucose (74-99) mg/dL POC Glucose (mg/dL) 156 H (75-99) mg/dL Iron (37-170) ug/dL TIBC (265-497) ug/dL Ferritin (11-264) ng/mL Urine Appearance Turbid H (Clear) Urine WBC >182 H (0-5) /hpf Urine WBC Clumps Many H (None) /hpf 09/24/16 09/24/16 09/24/16 Range/Units 06:00 07:25 10:00 RBC (3.80-5.40) m/uL Hgb (11.4-16.0) gm/dL Hct (34.0-46.0) % MCV (80.0-100.0) fL RDW (11.5-15.5) % Plt Count (150-450) k/uL Lymphocytes # (1.0-4.8) k/uL PT 12.4 H (9.0-12.0) sec Sodium 136 L (137-145) mmol/L Potassium 3.4 L (3.5-5.1) mmol/L Chloride 96 L (98-107) mmol/L BUN 38 H (7-17) mg/dL Creatinine 3.75 H (0.52-1.04) mg/dL Glucose 181 H (74-99) mg/dL POC Glucose (mg/dL) 186 H (75-99) mg/dL Iron (37-170) ug/dL TIBC (265-497) ug/dL Ferritin (11-264) ng/mL Urine Appearance (Clear) Urine WBC (0-5) /hpf Urine WBC Clumps (None) /hpf 09/24/16 09/24/16 Range/Units 10:00 12:36 RBC (3.80-5.40) m/uL Hgb (11.4-16.0) gm/dL Hct (34.0-46.0) % MCV (80.0-100.0) fL RDW (11.5-15.5) % Plt Count (150-450) k/uL Lymphocytes # (1.0-4.8) k/uL PT (9.0-12.0) sec Sodium (137-145) mmol/L Potassium (3.5-5.1) mmol/L Chloride (98-107) mmol/L BUN (7-17) mg/dL Creatinine (0.52-1.04) mg/dL Glucose (74-99) mg/dL POC Glucose (mg/dL) 140 H (75-99) mg/dL Iron 34 L (37-170) ug/dL TIBC 137 L (265-497) ug/dL Ferritin 837 H (11-264) ng/mL Urine Appearance (Clear) Urine WBC (0-5) /hpf Urine WBC Clumps (None) /hpf Microbiology - Last 24 Hours (Table) 09/23/16 13:35 Blood Culture - Preliminary Blood No Growth after 24 hours 09/23/16 19:05 Urine Culture - Preliminary Urine,Clean Catch Assessment and Plan Plan: The patient was seen with Dr Tsang. I had a detailed discussion regarding the procedure tomorrow. Once the patient is cleared, will proceed with debridement. JULIO C
[2016-09-24 16:50] LABS: Glucose,Whole Blood 119 mg/dL (75-99)
[2016-09-24] MEDS: GABAPENTIN 300 MG CAP PO SCH ×2 (16:57→21:32)
[2016-09-24] MEDS: ASPIRIN 81 MG CHEW PO SCH (16:57)
[2016-09-24] MEDS: SODIUM CHLORIDE 0.9% 1,000 ML IV SCH (16:58)
[2016-09-24] MEDS: CALCIUM CARB-MAG CARB-FOLIC 1 EACH TAB PO SCH ×2 (17:43→17:44)
[2016-09-24] MEDS: GLIMEPIRIDE 1 MG TAB PO SCH (17:44)
--- NOTE | 2016-09-24 19:35 | HP ---
DATE OF ADMISSION: 09/23/2016 PRESENTING COMPLAINT: Wound on the right hip. HISTORY OF PRESENTING COMPLAINT: This is a 76-year-old patient of Dr. Diane with a rather extensive medical history. The patient lives with her significant other called Katie. Patient has end-stage kidney disease, on hemodialysis Thursday, Thursday and Thursday. She has diabetes, chronic bilateral DVT, hypertension, osteoarthritis, coronary artery disease, peripheral neuropathy. Patient recently was diagnosed to have shingles on the right hip. Subsequently there was a breakdown of skin and patient developed a wound in the same area. Dr. Susie Jernigan from General Surgery is following the patient for wounds. Patient is tolerating a diet, had a bowel movement. Patient has a prior history of endometrial cancer that extended to the bowels and the bladder. Patient had extensive surgery leading to urostomy and colostomy. REVIEW OF SYSTEMS: CONSTITUTIONAL: Tired. HEENT: None. RESPIRATORY: None. CARDIOVASCULAR: None. GASTROINTESTINAL: As above. GENITOURINARY: As above. MUSCULOSKELETAL: Aches and pains in joints. DERMATOLOGICAL: As above. HEMATOLOGIC: None. LYMPHATICS: None. PSYCHIATRY: Some anxiety. NEUROLOGICAL: None. MUSCULOSKELETAL: Pain in multiple joints. PAST HISTORY: 1. End-stage kidney disease, on hemodialysis Thursday, Thursday and Thursday. 2. Diabetes mellitus, type 2, chronic. 3. Bilateral DVT. 4. Hypertension. 5. Primary osteoarthritis. 6. Coronary artery disease. 7. Diverticulosis. 8. Hyperlipidemia. 9. Peripheral neuropathy. 10. Chronic gait dysfunction; uses a walker. 11. Secondary hyperparathyroidism. PAST SURGICAL HISTORY: Extensive pelvic surgery, including hysterectomy, bladder surgery, bowel surgery leading to urostomy and colostomy. HOME MEDICATIONS: 1. Renagel 400 mg p.o. daily. 2. Pravachol 20 mg at bedtime. 3. Midodrine 10 mg p.o. Thursday, Thursday, Thursday. 4. Megabind 1 dose p.r.n. 5. Lantus 12 units subcutaneously at bedtime. 6. Amaryl 1.5 mg p.o. b.i.d. 7. Neurontin 300 mg p.o. t.i.d. 8. Vitamin D2, 50,000 units p.o. Thursday. 9. Colace 100 mg p.o. daily. 10. Flexeril 10 mg at bedtime. 11. Tenormin 12.5 p.o. daily. 12. Aspirin 81 mg p.o. daily. 13. Beano 600 mg p.o. t.i.d. ALLERGIES: 1. CIPRO. 2. PENICILLIN. 3. ADHESIVE. On examination, temperature 98, pulse 62, respiration 19, blood pressure 79/49, pulse ox 94% on room air. GENERAL APPEARANCE: Well built. BMI of 32. Sitting up, tired-appearing. EYES: Pupils equal. Conjunctivae normal. HEENT: External appearance of nose and ears normal. Oral cavity normal. NECK: JVD not raised. Mass not palpable. RESPIRATORY: Effort normal. LUNGS: Slightly decreased breath sounds. CARDIOVASCULAR: First and second sounds normal. No edema. ABDOMEN: Soft, nontender. Colostomy and urostomy bag present. LYMPHATIC: No lymph node palpable in neck or axillae. PSYCHIATRIC: Alert and oriented x3. Mood and affect normal. DERMATOLOGICAL: Patient has a wound on the right hip with areas of healed scar from shingles. MUSCULOSKELETAL: Evidence of osteoarthritis in multiple joints. INVESTIGATIONS: White count 11.6, hemoglobin 10.1, platelets 143. Potassium 3.6. BUN 39, creatinine 3.0. UA was positive. ASSESSMENT: 1. Right hip wound secondary to herpes zoster, present on admission. 2. End-stage kidney disease, on hemodialysis Thursday, Thursday and Thursday. 3. Diabetes mellitus, type 2, chronically on insulin. 4. Chronic bilateral lower extremity deep venous thrombosis, on anticoagulation. 5. Essential hypertension. 6. Primary osteoarthritis in multiple joints bilaterally. 7. Coronary artery disease. 8. Chronic diverticulosis. 9. Hyperlipidemia. 10. Peripheral neuropathy from diabetes. 11. Chronic gait dysfunction; uses a walker. 12. Secondary hyperparathyroidism. PLAN: General Surgery, Dr. Susie Jernigan, is consulted. Home medications are resumed. Accu-Cheks will be followed. Care was discussed with the patient. Patient is currently on hemodialysis. Given that patient is on hemodialysis, will adjust patient's dose of Neurontin. Patient ( ) require a good dose. Care with discussed with the patient. Questions were answered.
[2016-09-24] MEDS ORDERED: VANCOMYCIN 1,500 MG in SODIUM CHLORIDE 0.9% 250 ML IVPB ONE (21:00)
[2016-09-24 21:19] LABS: Glucose,Whole Blood 142 mg/dL (75-99)
[2016-09-24] MEDS: metroNIDAZOLE 500 MG TAB PO SCH (21:31)
[2016-09-24] MEDS: PRAVASTATIN SODIUM 20 MG TAB PO SCH (21:32)
[2016-09-24] MEDS: CYCLOBENZAPRINE 10 MG TAB PO SCH (21:33)
[2016-09-24] MEDS: INSULIN GLARGINE 100 UNIT/ML 10 ML VIAL SQ SCH (21:39)
[2016-09-24] MEDS ORDERED: GELATIN SPONGE,ABSORB (SMALL) 1 EACH SPONGE ONE (23:30)
[2016-09-25] MEDS: HYDROmorphone 1 MG/ML 1 ML SYRINGE IV PRN ×2 (04:54→20:59)
[2016-09-25 06:06] LABS: Calcium 7.9 mg/dL (8.4-10.2); Potassium 3.7 mmol/L (3.5-5.1)
[2016-09-25 07:26] LABS: Glucose,Whole Blood 204 mg/dL (75-99)
--- NOTE | 2016-09-25 07:56 | CONS ---
DATE OF CONSULTATION: 09/24/2016 REASON FOR CONSULTATION: Infected right hip wound. HISTORY OF PRESENT ILLNESS: The patient is a 76-year-old female who follows up with Dr. Angelo at the [facility]. Patient was evaluated in the wound care center yesterday, where she was noticed to have worsening of her wound to the right hip are, the patient had for a couple of weeks now. Patient also had a culture done in the outpatient setting on the , which did grow pseudomonas, enterococcus, proteus and Peptostreptococcus. With worsening of the wound, the patient had been sent to the ER for further evaluation. Patient was admitted to the hospital. The patient has been treated with Azactam, Fortaz and vancomycin. I was asked to see the patient for further recommendation regarding antibiotic therapy. Patient did have an underlying PENICILLIN allergy as well as allergic to CIPRO. The patient does have an underlying history of end-stage renal disease on hemodialysis through AV fistula. Patient does have some dull pain to the wound area about 5 to 6 out of 10 and no radiation. The patient denies significant high grade fever, rigors or chills. The patient denies significant chest pain. No shortness of breath. Occasional cough. No severe abdominal pain and no diarrhea. REVIEW OF SYSTEMS: CONSTITUTIONAL: Positive for weakness and high-grade fever. EYES: No complaint. ENT: No complaint. RESPIRATORY: As per HPI. CARDIOVASCULAR: No complaint. GENITOURINARY: No complaint. GASTROINTESTINAL: No complaints. MUSCULOSKELETAL: As per HPI. INTEGUMENTARY: As per HPI. PSYCHOLOGIC: No complaint. ENDOCRINE: No complaint. NEUROLOGIC: No complaint. PAST MEDICAL HISTORY: Significant for endstage disease on hemodialysis, type 2 diabetes mellitus, DVT, hypertension, osteoarthritis, coronary artery disease, diverticulitis, hyperlipidemia, peripheral neuropathy, secondary hyperparathyroidism. PAST SURGICAL HISTORY: Hysterectomy, bladder surgery, héctor resection, colostomy. SOCIAL HISTORY: Denies smoking, drinking or drug use. FAMILY HISTORY: No pertinent findings noticed. Allergies to CIPROFLOXACIN and PENICILLINS, however, tolerates cephalosporin without any problem. Medications include the patient is currently on aspirin, Tenormin, Sensipar, Flexeril, Aranesp, Neurontin, Dilaudid, Lantus, Humalog, vancomycin, ProAmatine. On examination, blood pressure is 99/46 with a pulse of 62, temperature of 98. General description is an elderly female lying in bed in no distress. No tachypnea or accessory muscle of respiration use. HEENT examination shows slight pallor. No scleral icterus. Oral mucous membrane dry. NECK: Trachea central. There is no thyromegaly. LUNGS: Unlabored breathing. Clear to auscultation anteriorly. HEART: S1, S2. Regular rate and rhythm. ABDOMEN: Soft. No tenderness. EXTREMITIES: No edema of feet. Examination of the right hip wound was examined with Dr. Angelo. Deep wound with foul smelling and significant amount of slough tissue. She had some wounds with necrotic skin, but no edema. NEUROLOGICAL: Patient is awake, alert, oriented x3. Mood and affect normal. LABS: Hemoglobin 8.8, white count 8, yesterday white count was 11.6. BUN of 38 with a creatinine 3.75. Wound culture done on the did show multiple pathogens including Pseudomonas , Proteus, Enterococcus faecalis and Peptostreptococcus. DIAGNOSTIC IMPRESSION AND PLAN: 1. Patient with right hip infected wound with polymicrobial kofi, multiple pathogens including Enterococcus and Pseudomonas and Peptostreptococcus with likely deep infection and underlying need for further surgical debridement. 2. Patient who does have a PENICILLIN and CIPROFLOXACIN allergy that does limit antibiotics that would be safe to use. PLAN: 1. Ideally could have used Zosyn that should cover all the pathogen, however, in view of the patient's PENICILLIN allergy that could not be used. The patient hence will be given vancomycin, pharmacy to dose, Fortaz and oral Flagyl. 2. Await further surgical debridement of the wound by Dr. Angelo to follow at which wound deep culture should be obtained. 3. We will follow up on the clinical condition and cultures to further adjust the medication if needed. Thank you for this consultation. Will follow this patient along with you. KIRK
[2016-09-25] MEDS: GLIMEPIRIDE 1 MG TAB PO SCH ×2 (08:47→17:57)
[2016-09-25] MEDS: MIDODRINE 5 MG TAB PO SCH ×3 (08:47→17:56)
[2016-09-25] MEDS: SEVELAMER 800 MG TAB PO SCH (08:47)
[2016-09-25] MEDS: CALCIUM CARB-MAG CARB-FOLIC 1 EACH TAB PO SCH ×3 (08:47→17:56)
[2016-09-25] MEDS: SODIUM HYPOCHLORITE 0.5% 480 ML BOT MISCELLANE SCH ×2 (08:48→17:54)
--- NOTE | 2016-09-25 09:16 | ECHOF ---
Referral Reason:HTN MEASUREMENTS -------- HEIGHT: 154.9 cm WEIGHT: 74.4 kg BP: 97/48 RVIDd: 4.2 cm (< 3.3) IVSd: 1.1 cm (0.6 - 1.1) LVIDd: 4.6 cm (3.9 - 5.3) LVPWd: 1.3 cm (0.6 - 1.1) IVSs: 1.3 cm LVIDs: 3.3 cm LVPWs: 1.5 cm LAESV Index (A-L): 42.84 ml/m Ao Diam: 2.8 cm (2.0 - 3.7) AV Cusp: 1.9 cm (1.5 - 2.6) LA Diam: 3.9 cm (2.7 - 3.8) MV EXCURSION: 21.171 mm (> 18.000) MV EF SLOPE: 99 mm/s (70 - 150) EPSS: 0.9 cm MV E Manuel: 1.01 m/s MV DecT: 191 ms MV A Manuel: 0.42 m/s MV E/A Ratio: 2.43 RAP: 15.00 mmHg RVSP: 63.24 mmHg FINDINGS -------- Resting bradycardia (HR<60bpm). This was a technically good study. There is mild concentric left ventricular hypertrophy. Overall left ventricular systolic function is low-normal with, an EF between 50 - 55 %. There is paradoxical/dysynergic septal motion consistent with right ventricular volume overload and/or elevated right ventricular end-diastolic pressure. The right ventricle is severely enlarged. LA is severely dilated >40 ml/m2 The right atrium is mildly enlarged. Aortic valve is trileaflet and is mildly thickened. The mitral valve leaflets are mildly thickened. Moderate mitral regurgitation is present. Severe tricuspid regurgitation present. There is moderate to severe pulmonary hypertension. The right ventricular systolic pressure, as measured by Doppler, is 63.24mmHg. Trace/mild (physiologic) pulmonic regurgitation. The aortic root size is normal. The inferior vena cava is mildly dilated. The pericardium is normal. CONCLUSIONS -------- 1. Resting bradycardia (HR<60bpm). 2. The mitral valve leaflets are mildly thickened. 3. Moderate mitral regurgitation is present. 4. Severe tricuspid regurgitation present. 5. There is moderate to severe pulmonary hypertension. 6. The right ventricular systolic pressure, as measured by Doppler, is 63.24mmHg. 7. Trace/mild (physiologic) pulmonic regurgitation. 8. The aortic root size is normal. 9. The inferior vena cava is mildly dilated. 10. The pericardium is normal. 11. This was a technically good study. 12. There is mild concentric left ventricular hypertrophy. 13. Overall left ventricular systolic function is low-normal with, an EF between 50 - 55 %. 14. There is paradoxical/dysynergic septal motion consistent with right ventricular volume overload and/or elevated right ventricular end-diastolic pressure. 15. The right ventricle is severely enlarged. 16. LA is severely dilated >40 ml/m2 17. The right atrium is mildly enlarged. 18. Aortic valve is trileaflet and is mildly thickened. LINUX SERVER ADMINISTRATOR: Emilie Solomon RDCS
[2016-09-25] MEDS: ASPIRIN 81 MG CHEW PO SCH (09:22)
[2016-09-25] MEDS: GABAPENTIN 300 MG CAP PO SCH ×3 (09:22→20:54)
[2016-09-25] MEDS: metroNIDAZOLE 500 MG TAB PO SCH ×3 (09:22→20:54)
--- NOTE | 2016-09-25 09:26 | P.PN ---
Subjective Principal diagnosis: Preop cardiac assessment This is a pleasant 76-year-old female patient who sees Dr. VC Atwood as an outpatient who was referred to the hospital for a nonhealing wound over the right hip area. The patient has been struggling with this for the last 4-6 weeks and she has been following up at the wound clinic, and because the wound has not been healing well she was referred to the hospital where she was seen already by a surgeon and the plan is to proceed with debridement tomorrow. The patient is known to have end stage renal disease on dialysis, diabetes, hypertension, and dyslipidemia. On follow-up with the patient today, she denies having any chest pain or discomfort. Hemodynamically she is bradycardic and also hypotensive. She underwent an echocardiogram which showed normal LV function with moderate MR and severe TR. I am going to DC the atenolol, give the patient a bolus of 200 of 0.9 normal saline, and from the cardiac standpoint, the patient can proceed with the surgery. Objective - Vital Signs Vital signs: Vital Signs Temp 97.5 F L 09/25/16 07:00 Pulse 76 09/25/16 07:00 Resp 16 09/25/16 07:00 BP 98/52 09/25/16 07:00 Pulse Ox 94 L 09/25/16 07:00 Intake & Output 09/24/16 09/25/16 09/25/16 18:59 06:59 18:59 Intake Total 160 100 Output Total 0 Balance 160 100 Weight 74.5 kg Intake: IV 160 Sodium Chloride 0.9% 1, 160 000 ml @ 20 mls/hr IV . Q24H [facility] Rx#:[id number] Oral 100 Output: Urine 0 Other: Voiding Method Ileal Conduit (Right) Ileal Conduit (Right) # Voids 0 - Labs CBC & Chem 7: 09/24/16 06:00 09/25/16 05:33 Labs: Abnormal Lab Results - Last 24 Hours (Table) 09/24/16 09/24/16 09/24/16 Range/Units 10:00 10:00 12:36 PT 12.4 H (9.0-12.0) sec Chloride (98-107) mmol/L Carbon Dioxide (22-30) mmol/L BUN (7-17) mg/dL Creatinine (0.52-1.04) mg/dL Glucose (74-99) mg/dL POC Glucose (mg/dL) 140 H (75-99) mg/dL Calcium (8.4-10.2) mg/dL Iron 34 L (37-170) ug/dL TIBC 137 L (265-497) ug/dL Ferritin 837 H (11-264) ng/mL 09/24/16 09/24/16 09/25/16 Range/Units 16:39 21:17 05:33 PT (9.0-12.0) sec Chloride 97 L (98-107) mmol/L Carbon Dioxide 31 H (22-30) mmol/L BUN 26 H (7-17) mg/dL Creatinine 2.70 H (0.52-1.04) mg/dL Glucose 214 H (74-99) mg/dL POC Glucose (mg/dL) 119 H 142 H (75-99) mg/dL Calcium 7.9 L (8.4-10.2) mg/dL Iron (37-170) ug/dL TIBC (265-497) ug/dL Ferritin (11-264) ng/mL 09/25/16 Range/Units 06:56 PT (9.0-12.0) sec Chloride (98-107) mmol/L Carbon Dioxide (22-30) mmol/L BUN (7-17) mg/dL Creatinine (0.52-1.04) mg/dL Glucose (74-99) mg/dL POC Glucose (mg/dL) 204 H (75-99) mg/dL Calcium (8.4-10.2) mg/dL Iron (37-170) ug/dL TIBC (265-497) ug/dL Ferritin (11-264) ng/mL Microbiology - Last 24 Hours (Table) 09/23/16 19:05 Urine Culture - Preliminary Urine,Clean Catch Gram Neg Bacilli 09/23/16 13:35 Blood Culture - Preliminary Blood No Growth after 24 hours Assessment and Plan Plan: Assessment #1 infected right hip wound #2 end-stage renal disease #3 diabetes type 2 #4 multiple comorbidities Plan #1 DC the atenolol #2 the echocardiogram was reviewed #3 from the cardiovascular standpoint the patient can proceed with surgery
[2016-09-25 11:51] LABS: Glucose,Whole Blood 129 mg/dL (75-99)
[2016-09-25] MEDS: INSULIN LISPRO (humaLOG) 300 UNIT/3 ML VIAL SQ SCH ×3 (12:41→20:55)
[2016-09-25] MEDS ORDERED: IV FLUID CONTINUATION 1,000 ML IV ONE (12:54)
[2016-09-25 12:58] LABS: Hepatitis B Surface Ag Index 0.08
[2016-09-25 13:16] LABS: Hepatitis B Surface Antibody POSITIVE (Negative)
[2016-09-25] MEDS ORDERED: fentaNYL (PF) 50 MCG/ML 2 ML AMP IV STA (13:16)
[2016-09-25] MEDS ORDERED: PROPOFOL 10 MG/ML 20 ML VIAL IV ONE (14:22)
[2016-09-25] MEDS ORDERED: ePHEDrine 50 MG/ML 1 ML AMP ONE (14:22)
[2016-09-25] MEDS ORDERED: fentaNYL (PF) 50 MCG/ML 2 ML AMP ONE (14:22)
[2016-09-25] MEDS ORDERED: MIDAZOLAM 2 MG/2 ML VIAL ONE (14:22)
[2016-09-25] MEDS ORDERED: LIDOCAINE 1% INJ 10MG/ML (20 ML MDV) ONE (14:22)
[2016-09-25 15:47] LABS: Glucose,Whole Blood 106 mg/dL (75-99)
[2016-09-25] MEDS: HYDROmorphone 1 MG/ML 1 ML SYRINGE IVP PRN ×4 (15:47→16:15)
--- NOTE | 2016-09-25 16:43 | P.OP ---
Date of Procedure: 09/25/16 Preoperative Diagnosis: Stage 3 decubitus ulcer of the right hip area. Postoperative Diagnosis: Stage 3 decubitus ulcer of the right hip area. Procedure(s) Performed: Sharp excisional debridement of the decubitus ulcer using electrocautery, scalpel and curet Implants: Anesthesia: MELISSAA Surgeon: Zoila Angelo Estimated Blood Loss (ml): 50 Pathology: other Condition: stable Disposition: PACU Indications for Procedure: 76-year-old female who had a decubitus ulcer is a partially debrided in the wound care center but due to the significant extent and stench and the suspicion that the patient was septic from the ulcer the patient was admitted to inpatient status and given IV antibiotics. Due to the extent this he was made to do the debridement of the wound in the operating room. Operative Findings: Patient has 3 ulcers 1- the large posterior hip decubitus ulcer after debridement measures 14 cm x 7 cm x 1 cm The wound base consisted of significant amount of necrotic fat and liquids. There was minimal bleeding tissue 2- the second inferior right lateral wound on the thigh measures 4.5 cm x 2 cm x 0.2 cm The patient had significant amount of eschar which was removed 3- deferred decubitus is right superior measures 1.3 x 3.6 x 0.1 Description of Procedure: Asst. developed 6-year-old female with multiple medical problems presented to the wound care center with the PICU was also due to the extent decision was made to do this in the operating room. After obtaining informed consent and appropriate cardiac clearance and initiating appropriate IV antibiotic therapy patient taken the operating room and placed in the supine position and given LMA intubation with IV sedation. He was she was then rolled over into the left lateral decubitus position. The area was prepped and draped in the usual sterile surgical fashion. The larger wound repaired using electrocautery and sharp excision of the entire eschar and this was deepened through the skin and subcutis tissue all the way to healthier tissue. Significant amount of necrotic tissue was removed from the edges and the base. This left the wound that a size of 14 x 7 cm x 1 cm deep that extended into the subcu anus tissue but not to the fascia. Half of the excised tissue was sent for tissue culture and the other half in formalin for pathology. Attention was then turned to the other 2 wounds. There were curetted and the eschar on the inferior wound was removed with the help of sharp excision using a scalpel. Hemostasis was secured with Electrocautery. After thoroughly irrigating and washing the wounds are moist to dry Kerlix was placed in the large wound and bacitracin with Telfa was placed on the other 2 wounds. The patient tolerated procedure well there were no complications she was extubated and taken to recovery room in stable condition.
[2016-09-25 17:12] LABS: Glucose,Whole Blood 124 mg/dL (75-99)
[2016-09-25] MEDS: LACTATED RINGERS 1,000 ML IV SCH (17:48)
[2016-09-25] MEDS: SODIUM CHLORIDE 0.9% 1,000 ML IV SCH (17:49)
[2016-09-25] MEDS: CINACALCET 30 MG TAB PO SCH (17:57)
[2016-09-25] MEDS: HEPARIN SODIUM,PORCINE 5,000 UNIT/ML 1 ML VIAL SQ SCH (20:53)
[2016-09-25] MEDS: INSULIN GLARGINE 100 UNIT/ML 10 ML VIAL SQ SCH (20:53)
[2016-09-25] MEDS: PRAVASTATIN SODIUM 20 MG TAB PO SCH (20:53)
[2016-09-25] MEDS: CYCLOBENZAPRINE 10 MG TAB PO SCH (20:53)
[2016-09-25 21:01] LABS: Glucose,Whole Blood 166 mg/dL (75-99)
--- NOTE | 2016-09-25 22:58 | PN ---
DATE OF SERVICE: 09/25/2016 PRESENTING COMPLAINT: Wound on the right hip. INTERVAL HISTORY: This is a patient who presented with a wound on the right hip; due to go for debridement today. Patient's partner is at the bedside. Patient is otherwise rather cheerful. Has been tolerating her diet otherwise. Review of systems is done for constitutional, cardiovascular, GI, pulmonary; relevant findings as above. Current medications are reviewed, including IV ceftazidime. On examination, temperature 97.4, pulse 73, respiration 15, blood pressure 90/52, pulse ox 94% on room air. GENERAL APPEARANCE: Lying in bed, comfortable, smiling. EYES: Pupils equal. Conjunctivae normal. NECK: JVD not raised. Mass not palpable. RESPIRATORY: Effort normal. LUNGS: Slightly decreased breath sounds. CARDIOVASCULAR: First and second sounds normal. No edema. ABDOMEN: Soft, non-tender. Colostomy and urostomy bag present. PSYCHIATRY: Alert and oriented x3. Mood and affect normal. DERMATOLOGICAL: Wound on the right hip. INVESTIGATIONS: Potassium 3.7. BUN 26, creatinine 2.70. Accu-Cheks are noted. ASSESSMENT: 1. Right hip wound, probably infected secondary to herpes zoster, present on admission. 2. End-stage kidney disease, on hemodialysis Thursday, Thursday and Thursday. 3. Diabetes mellitus, type 2, chronically on insulin. 4. 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 5. Essential hypertension. 6. Primary osteoarthritis in multiple joints bilaterally. 7. Coronary artery disease. 8. Chronic diverticulosis. 9. Hyperlipidemia. 10. Peripheral neuropathy from diabetes. 11. Chronic gait dysfunction; uses a walker and mostly uses a wheelchair. 12. Secondary hyperparathyroidism. PLAN: Patient is awaiting debridement. IV antibiotics are to continue. Will await further input from Surgery. Care was discussed with the patient and partner at the bedside. Will follow.
[2016-09-26 07:20] LABS: Glucose,Whole Blood 111 mg/dL (75-99)
[2016-09-26] MEDS ORDERED: CALCIUM CARB-MAG CARB-FOLIC 1 EACH TAB PO SCH ×2 (07:30→12:30)
--- NOTE | 2016-09-26 08:29 | PN ---
DATE OF SERVICE: 09/25/2016 Reason for follow-up is right hip infected wound. The patient is afebrile. Patient was seen on rounds this morning, waiting for the surgical debridement of the wound. Patient denies significant chest pain, shortness of breath. No cough. No abdominal pain or worsening pain to that wound area. On examination, blood pressure 106/52 with pulse of 63, temperature 98.8. She is 98% on room air. General description is an elderly female lying in bed in no distress. RESPIRATORY SYSTEM: Unlabored breathing. Clear to auscultation anteriorly. HEART: S1, S2. Regular rate and rhythm. ABDOMEN: Soft, no tenderness. Wound is currently dressed up. LABS: Repeat wound cultures are currently pending. No CBC done today. DIAGNOSTIC IMPRESSION AND PLAN: Patient with right hip infected wound. Awaiting surgical debridement and deep cultures. Patient should continue current antibiotics on vancomycin and Fortaz and Flagyl because of her PENICILLIN ALLERGY adjusting antibiotics further after results of the deep culture report. Continue supportive care.
[2016-09-26] MEDS: GABAPENTIN 300 MG CAP PO SCH ×3 (08:34→21:17)
[2016-09-26] MEDS: SEVELAMER 800 MG TAB PO SCH (08:35)
[2016-09-26] MEDS: metroNIDAZOLE 500 MG TAB PO SCH ×3 (08:35→21:17)
[2016-09-26] MEDS: GLIMEPIRIDE 1 MG TAB PO SCH ×2 (08:36→17:32)
[2016-09-26] MEDS: CINACALCET 30 MG TAB PO SCH (08:36)
[2016-09-26] MEDS: CALCIUM CARB-MAG CARB-FOLIC 1 EACH TAB PO SCH ×4 (08:40→17:31)
[2016-09-26] MEDS: ASPIRIN 81 MG CHEW PO SCH (08:41)
[2016-09-26] MEDS: INSULIN LISPRO (humaLOG) 300 UNIT/3 ML VIAL SQ SCH ×4 (08:47→21:17)
[2016-09-26] MEDS: HYDROmorphone 1 MG/ML 1 ML SYRINGE IV PRN ×2 (10:06→19:41)
[2016-09-26 11:18] LABS: Potassium 4.3 mmol/L (3.5-5.1)
--- NOTE | 2016-09-26 11:50 | P.PN ---
Progress Note - Text This is a pleasant 76-year-old female patient was referred to the hospital for a nonhealing wound over the right hip area. The patient has been struggling with this for the last 4-6 weeks and she has been following up at the wound clinic, and because the wound has not been healing well she was referred to the hospital where she was seen already by a surgeon and the plan is to proceed with debridement tomorrow. The patient is known to have end stage renal disease on dialysis, diabetes, hypertension, and dyslipidemia. The patient underwent debridement surgery yesterday which was uneventful. From the cardiac vascular standpoint of view, she continues to be asymptomatic. Hemodynamically, she continues to have marginally low blood pressure and I did stop the atenolol yesterday. She underwent an echocardiogram which showed normal LV function with moderate MR and severe TR. From the cardiovascular standpoint of view, there is no reason for any further cardiac workup and will follow-up with the patient on when necessary case
[2016-09-26] MEDS: SODIUM HYPOCHLORITE 0.5% 480 ML BOT MISCELLANE SCH ×2 (11:58→18:49)
[2016-09-26 12:27] LABS: Glucose,Whole Blood 231 mg/dL (75-99)
[2016-09-26] MEDS ORDERED: GELATIN SPONGE,ABSORB (SMALL) 1 EACH SPONGE ONE (13:00)
[2016-09-26] MEDS: MIDODRINE 5 MG TAB PO SCH ×4 (13:38→17:53)
[2016-09-26] MEDS: HEPARIN SODIUM,PORCINE 5,000 UNIT/ML 1 ML VIAL SQ SCH ×2 (13:39→22:35)
--- NOTE | 2016-09-26 14:12 | P.PN ---
Progress Note - Text Subjective: patient is postop day 1 after excisional debridement of her wound pain is well-controlled a significant amount of drainage there is no fever no chills. 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 I do not believe she will benefit from any further debridement. Plan and plan. Patient's previous biopsy report did show necrotic tissue with calcification. She is currently receiving IV antibiotic therapy. As stated and on believe she will benefit from any further debridement at this time. From the surgical standpoint she may be discharged to follow-up in my clinic on Thursday at which time a wound VAC will be ordered. Meanwhile she is to continue with Dakin solution dressing as recommended.
--- NOTE | 2016-09-26 14:14 | P.PN ---
Subjective 76-year-old female seen and examined this morning currently is resting in bed. no new events. Patients being followed by surgical service for management of a stage III decubitus ulcer on the right hip area. Patient did undergo September 25 sharp excisional debridement of the decubitus ulcer involving the right hip area stage III using electrocautery, scalpel and curet. Current wound care is up Opticell gel fiber Aquasol silver to the surgical site stopping the Dakin solution dressing to the surgical site this morning is dry patient being followed by infectious disease Dr. Tsang Objective - Vital Signs Vital signs: Vital Signs Temp 97.0 F L 09/26/16 07:00 Pulse 63 09/26/16 07:00 Resp 16 09/26/16 07:00 BP 108/58 09/26/16 07:00 Pulse Ox 92 L 09/26/16 07:00 Intake & Output 09/25/16 09/26/16 09/26/16 18:59 06:59 18:59 Intake Total 1110 Output Total 50 175 Balance 1060 -175 Weight 74.5 kg 76.5 kg Intake: IV 950 Intake, IV Titration 160 Amount Sodium Chloride 0.9% 1, 160 000 ml @ 20 mls/hr IV . Q24H [facility] Rx#:[id number] Output: Urine 100 Stool 75 Estimated Blood Loss 50 Other: Voiding Method Ileal Conduit (Right) Ileal Conduit (Right) # Voids 0 - Exam Physical exam 76-year-old female resting in bed appears in no acute distress Lungs essentially clear adequate air movement currently on room air no cough noted no shortness of breath Heart S1-S2 audible and regular denying chest pain Abdomen ostomy scant amount of stool noted in the drainage bag with a urostomy soft nondistended Extremities dressing to the nonhealing right hip wound dry - Labs CBC & Chem 7: 09/24/16 06:00 09/26/16 10:51 Labs: Abnormal Lab Results - Last 24 Hours (Table) 09/25/16 09/25/16 09/25/16 Range/Units 15:43 17:09 20:46 BUN (7-17) mg/dL Creatinine (0.52-1.04) mg/dL Glucose (74-99) mg/dL POC Glucose (mg/dL) 106 H 124 H 166 H (75-99) mg/dL Calcium (8.4-10.2) mg/dL 09/26/16 09/26/16 09/26/16 Range/Units 06:52 10:51 12:24 BUN 40 H (7-17) mg/dL Creatinine 3.70 H (0.52-1.04) mg/dL Glucose 209 H (74-99) mg/dL POC Glucose (mg/dL) 111 H 231 H (75-99) mg/dL Calcium 8.0 L (8.4-10.2) mg/dL Microbiology - Last 24 Hours (Table) 09/25/16 15:03 Gram Stain - Preliminary Hip - Right Tissue Culture - Preliminary Gram Neg Bacilli 09/25/16 15:03 Gram Stain - Preliminary Hip - Right Tissue Culture - Preliminary Gram Neg Bacilli Group D Enterococcus 09/25/16 15:03 Anaerobic Culture - Preliminary Hip - Right 09/25/16 15:03 Anaerobic Culture - Preliminary Hip - Right 09/23/16 13:35 Blood Culture - Preliminary Blood No Growth after 48 hours Assessment and Plan Plan: Impression Present on admission infected right hip wound End-stage renal disease on hemodialysis 3 times a week Endometrial cancer with ostomy urostomy Chronic hypotension maintained on midodrine Anemia of chronic illness Chronic nonhealing right hip wound Status post debridement of a stage III decubitus ulcer of the right hip with Sharp excisional debridement of the decubitus ulcer using electrocautery, scalpel and curet done on September 25 Plan Continue wound care as ordered IV antibiotics per infectious disease Medical management as ordered Pain control Follow-up on wound cultures from the right hip on September 25 Further surgical recommendations pending the statement The above dictated assessment and findings were discussed with dr julio c Torres and the plan of care have been dictated as directed. Riya Moore nurse practitioner acting as a scribe for dr bunch
[2016-09-26] MEDS: LACTATED RINGERS 1,000 ML IV SCH (15:34)
[2016-09-26 17:22] LABS: Glucose,Whole Blood 171 mg/dL (75-99)
[2016-09-26] MEDS: SODIUM CHLORIDE 0.9% 1,000 ML IV SCH (17:58)
--- NOTE | 2016-09-26 17:59 | PN ---
DATE OF SERVICE: 09/26/2016 REASON FOR FOLLOWUP: Right hip infected wound. INTERVAL HISTORY: The patient is afebrile. The patient is status post attempted debridement of the wound in the OR. Patient did tolerate the procedure. Patient denies significant pain to the wound area, denies significant chest pain or shortness of breath or cough. No abdominal pain or any diarrhea. On examination, blood pressure is 108/58 with a pulse of 63, temperature 97.5. She is 93% on room air. General description is an elderly female lying in bed in no distress. RESPIRATORY SYSTEM: Unlabored breathing. Clear to auscultation anteriorly. HEART: S1, S2. Regular rate and rhythm. ABDOMEN: Soft. No tenderness. LABS: BUN of 40 with a creatinine 3.70. Wound culture showing Gram-negative bacilli, enterococcus. DIAGNOSTIC IMPRESSION AND PLAN: Patient with infected right hip wound. Culture previously showed multiple pathogens, including enterococcus, pseudomonas and Proteus mirabilis. Waiting for repeat culture to finalize. She is currently on vancomycin and Fortaz. This can be continued through dialysis for at least 3 to 4 weeks, depending on clinical response, along with oral Flagyl. Plan to continue local wound care with Dakin solution. Hopefully she will be able to get a wound [facility] down the road in the wound care clinic. Once antibiotic ( ) be able to go home from ID standpoint.
--- NOTE | 2016-09-26 18:55 | PN ---
Patient is seen for followup for end-stage renal disease. She is scheduled for hemodialysis on a Thursday, Thursday, Thursday schedule. Patient will be hemodialyzed today. She is status post debridement of decubitus ulcer, currently doing fairly well. On examination, blood pressure is 108/58, heart rate 63 per minute. Patient is afebrile. EXAMINATION OF THE HEART: S1 and S2. EXAMINATION OF THE LUNGS: Bilateral breath sounds are heard. ABDOMEN: Soft, obese. Examination of lower extremities shows chronic skin changes, edema 1+ bilaterally. GAS MAIN FITTER HELPER exam is grossly intact. Labs show sodium 139, potassium 4.3, BUN 40, serum creatinine 3.7. ASSESSMENT: 1. End-stage renal disease, on hemodialysis on a Thursday, Thursday, Thursday schedule. Patient is scheduled for hemodialysis today. 2. Sacral decubitus ulcer, status post debridement, with the wound cultures growing group D enterococcus and Gram-negative bacilli, maintained on ceftazidime, been being followed by Infectious Disease. 3. Hypotension with history of chronic hypotension as outpatient, maintained on Midodrine. PLAN: Hemodialysis today. Goal UF of about 1 to 1.5 liters as tolerated.
[2016-09-26] MEDS: BACITRACIN 500 UNIT/GM OINT 28.4 GM TUBE TOPICAL SCH (20:05)
[2016-09-26] MEDS: CYCLOBENZAPRINE 10 MG TAB PO SCH (20:06)
[2016-09-26] MEDS: PRAVASTATIN SODIUM 20 MG TAB PO SCH (20:06)
[2016-09-26] MEDS ORDERED: VANCOMYCIN 1,500 MG in SODIUM CHLORIDE 0.9% 250 ML IVPB ONE (21:00)
[2016-09-26 21:03] LABS: Glucose,Whole Blood 95 mg/dL (75-99)
[2016-09-26] MEDS: INSULIN GLARGINE 100 UNIT/ML 10 ML VIAL SQ SCH (21:17)
--- NOTE | 2016-09-26 22:17 | PN ---
DATE OF SERVICE: 09/26/2016 PRESENTING COMPLAINT: Wound on the right hip. INTERVAL HISTORY: This patient presented with a wound on the right hip secondary to possible herpes zoster. Patient is status post debridement. Patient is resting comfortably in the bed. Tolerating her diet. Appears tired today. Review of systems done for constitutional, cardiovascular, GI, pulmonary, with relevant findings as above. Current medications include IV ceftazidime. PHYSICAL EXAMINATION: VITAL SIGNS: Temperature 97.0, pulse 63, respiratory rate 16, blood pressure 108/58, oxygen saturation 92% on room air. GENERAL APPEARANCE: Patient is resting comfortably in the bed. No acute distress. EYES: Pupils equal. Conjunctivae normal NECK: JVD not raised. Mass not palpable. RESPIRATORY: Effort normal. LUNGS: Slightly decreased breath sounds bilaterally. CARDIOVASCULAR: First and second sounds noted. No edema. ABDOMEN: Soft, nontender. Colostomy and urostomy bags present and functioning accordingly. PSYCHIATRY: Alert and oriented x3. Mood and affect are normal. Patient appears sleepy today. DERMATOLOGIC: Wound on the right hip, status post debridement. INVESTIGATIONS: Blood glucose 171. BUN 40, creatinine 3.70. ASSESSMENT: 1. Right hip wound, probably secondary to herpes zoster, present on admission. 2. End-stage kidney disease, on hemodialysis Thursday, Thursday, Thursday. 3. Diabetes mellitus, type 2, chronically on insulin. 4. 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 5. Essential hypertension. 6. Primary osteoarthritis in multiple joints bilaterally. 7. Coronary artery disease. 8. Chronic diverticulosis. 9. Hyperlipidemia. 10. Peripheral neuropathy from diabetes. 11. Chronic gait dysfunction; uses a walker but mostly uses a wheelchair. 12. Secondary hyperparathyroidism. PLAN: Dr. Angelo has provided wound care orders. Tentative plan will be to discharge patient home on Thursday. Will monitor. Patient was seen and examined by nurse practitioner, Ludmila Tavarez, and all elements of the case were discussed with the attending, Dr. Fulton.
--- NOTE | 2016-09-26 22:26 | PN ---
DATE OF SERVICE: 09/26/2016 ATTENDING NOTE: This patient was seen and examined by me earlier today. I reviewed the note of my nurse practitioner Ms. Tavarez. Discussed with her. Additional findings below. This patient is here with a right hip wound, status post debridement. Cultures are pending. Patient's pain is controlled. On examination sitting up. LUNGS: Decreased breath sounds. CARDIOVASCULAR: First and second sounds normal. RIGHT HIP: Wound with a dressing. INVESTIGATIONS: Tissue culture is growing Gram-negative bacilli and group D enterococcus. ASSESSMENT: Right hip wound, status post incision and drainage, growing enterococcus and Gram-negative bacilli. PLAN: Continue with antibiotics. Await further cultures. Care was discussed with the patient. Patient will probably end up being here on the weekend. Will follow.
[2016-09-27 07:03] LABS: Glucose,Whole Blood 64 mg/dL (75-99)
[2016-09-27 07:11] LABS: Anisocytosis Slight; Basophils # (A) 0.1 k/uL (0-0.2); Basophils % (A) 1 %; CH 31.7; CHCM 30.1; Eosinophils # (A) 0.4 k/uL (0-0.7); Eosinophils % (A) 5 %; HCT 28.9 % (34.0-46.0); HGB 8.9 gm/dL (11.4-16.0); Hypochromasia Marked; Luc # (Auto) 0.15; Luc % (Auto) 2; Lymphocytes # (A) 0.5 k/uL (1.0-4.8); Lymphocytes % (A) 6 %; MCH 32.5 pg (25.0-35.0); MCHC 30.7 g/dL (31.0-37.0); Macrocytosis Marked; Mean Platelet Volume 8.1; Monocytes # (A) 0.5 k/uL (0-1.0); Monocytes % (A) 6 %; Neutrophils # (A) 6.7 k/uL (1.3-7.7); Neutrophils % (A) 81 %; RBC 2.73 m/uL (3.80-5.40); WBC 8.2 k/uL (3.8-10.6)
[2016-09-27 07:30] LABS: Calcium 7.8 mg/dL (8.4-10.2); Potassium 3.7 mmol/L (3.5-5.1)
[2016-09-27 07:43] LABS: Glucose,Whole Blood 66 mg/dL (75-99)
[2016-09-27 07:43] LABS: Glucose,Whole Blood 88 mg/dL (75-99)
[2016-09-27] MEDS: HEPARIN SODIUM,PORCINE 5,000 UNIT/ML 1 ML VIAL SQ SCH ×2 (10:10→20:28)
[2016-09-27] MEDS: CALCIUM CARB-MAG CARB-FOLIC 1 EACH TAB PO SCH ×3 (10:11→17:23)
[2016-09-27] MEDS: BACITRACIN 500 UNIT/GM OINT 28.4 GM TUBE TOPICAL SCH ×2 (10:11→20:31)
[2016-09-27] MEDS: MIDODRINE 5 MG TAB PO SCH ×3 (10:11→17:22)
[2016-09-27] MEDS: CINACALCET 30 MG TAB PO SCH (10:12)
[2016-09-27] MEDS: ASPIRIN 81 MG CHEW PO SCH (10:12)
[2016-09-27] MEDS: GABAPENTIN 300 MG CAP PO SCH ×3 (10:12→20:59)
[2016-09-27] MEDS: SEVELAMER 800 MG TAB PO SCH (10:12)
[2016-09-27] MEDS: metroNIDAZOLE 500 MG TAB PO SCH ×3 (10:12→20:59)
[2016-09-27] MEDS: GLIMEPIRIDE 1 MG TAB PO SCH ×2 (10:13→17:22)
[2016-09-27] MEDS: INSULIN LISPRO (humaLOG) 300 UNIT/3 ML VIAL SQ SCH ×4 (10:13→20:31)
[2016-09-27] MEDS: SODIUM HYPOCHLORITE 0.5% 480 ML BOT MISCELLANE SCH ×2 (10:14→20:30)
--- NOTE | 2016-09-27 11:27 | P.PN ---
Subjective Patient is postop day #2 for excisional debridement of right hip wound. At this time she has no complaints. She has no fever or chills. Objective - Vital Signs Vital signs: Vital Signs Temp 96.4 F L 09/27/16 07:00 Pulse 63 09/27/16 07:00 Resp 20 09/27/16 07:00 BP 100/49 09/27/16 07:00 Pulse Ox 97 09/27/16 07:00 Intake & Output 09/26/16 09/27/16 09/27/16 18:59 06:59 18:59 Intake Total 160 Output Total 25 Balance 160 -25 Weight 79 kg Intake: IV 160 Sodium Chloride 0.9% 1, 160 000 ml @ 20 mls/hr IV . Q24H ONE Rx#:[id number] Output: Urine 25 Other: Voiding Method Ileal Conduit (Right) Ileal Conduit (Right) # Bowel Movements 1 - Constitutional General appearance: Present: average body habitus - Respiratory Details: Decreased breath sounds at the bases - Cardiovascular Rhythm: regular Heart sounds: normal: S1, S2 - Gastrointestinal Gastrointestinal Comment(s): Colonoscopy and urostomy in place positive bowel sounds abdomen soft - Integumentary Integumentary Comment(s): Dressing clean and dry right hip - Psychiatric Psychiatric: Present: A&O x's 3, appropriate affect, intact judgment & insight - Labs CBC & Chem 7: 09/27/16 06:30 09/27/16 06:30 Labs: Abnormal Lab Results - Last 24 Hours (Table) 09/26/16 09/26/16 09/26/16 Range/Units 10:51 12:24 17:17 RBC (3.80-5.40) m/uL Hgb (11.4-16.0) gm/dL Hct (34.0-46.0) % MCV (80.0-100.0) fL MCHC (31.0-37.0) g/dL RDW (11.5-15.5) % Plt Count (150-450) k/uL Lymphocytes # (1.0-4.8) k/uL BUN 40 H (7-17) mg/dL Creatinine 3.70 H (0.52-1.04) mg/dL Glucose 209 H (74-99) mg/dL POC Glucose (mg/dL) 231 H 171 H (75-99) mg/dL Calcium 8.0 L (8.4-10.2) mg/dL 09/27/16 09/27/16 09/27/16 Range/Units 06:30 06:30 06:49 RBC 2.73 L (3.80-5.40) m/uL Hgb 8.9 L (11.4-16.0) gm/dL Hct 28.9 L (34.0-46.0) % MCV 106.0 H (80.0-100.0) fL MCHC 30.7 L (31.0-37.0) g/dL RDW 18.0 H (11.5-15.5) % Plt Count 102 L (150-450) k/uL Lymphocytes # 0.5 L (1.0-4.8) k/uL BUN 20 H (7-17) mg/dL Creatinine 2.51 H (0.52-1.04) mg/dL Glucose 68 L (74-99) mg/dL POC Glucose (mg/dL) 64 L (75-99) mg/dL Calcium 7.8 L (8.4-10.2) mg/dL 09/27/16 Range/Units 07:04 RBC (3.80-5.40) m/uL Hgb (11.4-16.0) gm/dL Hct (34.0-46.0) % MCV (80.0-100.0) fL MCHC (31.0-37.0) g/dL RDW (11.5-15.5) % Plt Count (150-450) k/uL Lymphocytes # (1.0-4.8) k/uL BUN (7-17) mg/dL Creatinine (0.52-1.04) mg/dL Glucose (74-99) mg/dL POC Glucose (mg/dL) 66 L (75-99) mg/dL Calcium (8.4-10.2) mg/dL Microbiology - Last 24 Hours (Table) 09/23/16 13:35 Blood Culture - Preliminary Blood No Growth after 72 hours 09/25/16 15:03 Gram Stain - Preliminary Hip - Right Tissue Culture - Preliminary Gram Neg Bacilli 09/25/16 15:03 Gram Stain - Preliminary Hip - Right Tissue Culture - Preliminary Gram Neg Bacilli Group D Enterococcus Assessment and Plan Plan: Impression/plan: 1. 76-year-old white female with infected right hip wound/postop day #2 from incision and drainage of abscess 2. History of renal failure on dialysis 3 times a week 3. History of endometrial cancer with colostomy and urostomy Plan: 1. Medical management as per medicine 2. Continue wound care as per Dr. Angelo
--- NOTE | 2016-09-27 12:25 | P.PN ---
Subjective Principal diagnosis: This is a 76-year-old female with ESRD on dialysis Thursday was a Thursday. 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 She was dialyzed yesterday and she is doing fairly well denies any complaints. No nausea vomiting diarrhea abdominal pain. No fever chills cough shortness of breath. Objective - Vital Signs Vital signs: Vital Signs Temp 96.4 F L 09/27/16 07:00 Pulse 63 09/27/16 07:00 Resp 20 09/27/16 07:00 BP 100/49 09/27/16 07:00 Pulse Ox 97 09/27/16 07:00 Intake & Output 09/26/16 09/27/16 09/27/16 18:59 06:59 18:59 Intake Total 160 354 Output Total 25 Balance 160 -25 354 Weight 79 kg Intake: IV 160 Sodium Chloride 0.9% 1, 160 000 ml @ 20 mls/hr IV . Q24H ONE Rx#:[id number] Oral 354 Output: Urine 25 Other: Voiding Method Ileal Conduit (Right) Ileal Conduit (Right) # Bowel Movements 1 On examination she is awake alert oriented. HEENT exam no JVP neck is supple no facial asymmetry Lungs are clear to auscultation percussion good air entry bilaterally. Heart sounds are unremarkable for any murmur rub gallop Abdomen soft nontender she has 2 ostomy bags on her lower abdomen on either side. Extremity exam reveals calciphylaxis right medial mid thigh. Her left hand is in cast Neurologically awake alert oriented. Moves all her extremities. - Labs CBC & Chem 7: 09/27/16 06:30 09/27/16 06:30 Labs: Abnormal Lab Results - Last 24 Hours (Table) 09/26/16 09/26/16 09/27/16 Range/Units 12:24 17:17 06:30 RBC (3.80-5.40) m/uL Hgb (11.4-16.0) gm/dL Hct (34.0-46.0) % MCV (80.0-100.0) fL MCHC (31.0-37.0) g/dL RDW (11.5-15.5) % Plt Count (150-450) k/uL Lymphocytes # (1.0-4.8) k/uL BUN 20 H (7-17) mg/dL Creatinine 2.51 H (0.52-1.04) mg/dL Glucose 68 L (74-99) mg/dL POC Glucose (mg/dL) 231 H 171 H (75-99) mg/dL Calcium 7.8 L (8.4-10.2) mg/dL 09/27/16 09/27/16 09/27/16 Range/Units 06:30 06:49 07:04 RBC 2.73 L (3.80-5.40) m/uL Hgb 8.9 L (11.4-16.0) gm/dL Hct 28.9 L (34.0-46.0) % MCV 106.0 H (80.0-100.0) fL MCHC 30.7 L (31.0-37.0) g/dL RDW 18.0 H (11.5-15.5) % Plt Count 102 L (150-450) k/uL Lymphocytes # 0.5 L (1.0-4.8) k/uL BUN (7-17) mg/dL Creatinine (0.52-1.04) mg/dL Glucose (74-99) mg/dL POC Glucose (mg/dL) 64 L 66 L (75-99) mg/dL Calcium (8.4-10.2) mg/dL Microbiology - Last 24 Hours (Table) 09/23/16 13:35 Blood Culture - Preliminary Blood No Growth after 72 hours 09/25/16 15:03 Gram Stain - Preliminary Hip - Right Tissue Culture - Preliminary Gram Neg Bacilli 09/25/16 15:03 Gram Stain - Preliminary Hip - Right Tissue Culture - Preliminary Gram Neg Bacilli Group D Enterococcus Assessment and Plan Plan: impression. 1. ESRD on dialysis Thursday was a Thursday stable. 2. Calcifphylaxis mid right thigh medially. 3. Diabetes mellitus. 4. Bilateral ostomies with history of endometrial cancer with colostomy urostomy status post chemo and radiation in the remote past. 5. Anemia hemoglobin trending down on Aranesp. Hemoglobin down from 10.1-8.9 this morning . Saturations 24% Recommendation. We'll proceed with treatment with sodium thiosulfate 25 g with each dialysis treatment at the last half an hour. Increase Aranesp
[2016-09-27 12:29] LABS: Glucose,Whole Blood 151 mg/dL (75-99)
[2016-09-27] MEDS: LACTATED RINGERS 1,000 ML IV SCH (14:22)
--- NOTE | 2016-09-27 14:48 | PN ---
DATE OF SERVICE: 09/27/2016 ATTENDING NOTE: Patient was seen and examined by me earlier today. I reviewed the note of my nurse practitioner, Ms. Tavarez. Discussed with her additional findings below. Patient has a right hip wound. Cultures are still pending. Otherwise comfortable, tolerating a diet. On examination, abdomen is soft, nontender. Cultures are noted. ASSESSMENT: Right hip wound, status post I&D, growing enterococcus and gram-negative bacilli. PLAN: Care was discussed with the patient, continue his antibiotics until full results are back.
--- NOTE | 2016-09-27 16:21 | PN ---
DATE OF SERVICE: 09/27/2016 PRESENTING COMPLAINT: Wound on the right hip INTERVAL HISTORY: This patient presented with a wound on the right hip, secondary to possible herpes zoster. Patient is status post debridement. Today, she is resting comfortably in bed. Tolerating her diet. Appears tired today. Review of systems done for constitutional, cardiovascular, GI, pulmonary, with relevant findings as above. CURRENT MEDICATIONS: IV ceftazidime. PHYSICAL EXAM: VITAL SIGNS: Temperature 96.4, pulse 63, respirations 20, blood pressure 100/49, oxygen saturation 97% on room air. GENERAL APPEARANCE: Patient is sleeping in her bed, currently arousable. Appears tired today. EYES: Pupils equal. Conjunctivae are normal. NECK: JVD not raised. Mass not palpable. RESPIRATORY: Effort normal. CARDIOVASCULAR: First and second sounds noted. No edema. ABDOMEN: Soft, nontender. Colostomy and urostomy bags present and functioning accordingly. PSYCHIATRY: Alert and oriented x3. Mood and affect are normal. DERMATOLOGIC: Wound on the right hip, status post debridement. INVESTIGATIONS: Right hip tissue culture 09/25/2016 gram-negative bacilli group D Enterococcus faecalis preliminary results. BUN 20, creatinine 2.51. ASSESSMENT: 1. Right hip wound, probably secondary to herpes zoster, present on admission. 2. End-stage kidney disease, on hemodialysis Thursday, Thursday and Thursday. 3. Diabetes mellitus type 2, chronically on insulin. 4. Chronic bilateral lower extremity deep vein thrombosis, chronically on anticoagulation. 5. Essential hypertension. 6. Primary osteoarthritis of multiple joints bilaterally. 7. Chronic coronary artery disease. 8. Chronic diverticulosis. 9. Hyperlipidemia. 10. Peripheral neuropathy from diabetes. 11. Chronic gait dysfunction; uses a walker but mostly uses a wheelchair. 12. Secondary hyperparathyroidism. PLAN: Patient is to be discharged home on Thursday, awaiting home care agency to be set in place. Will continue to monitor. Patient seen and examined by nurse practitioner, Ludmila Tavarez, and all elements of the case discussed with the attending, Dr. Fulton.
[2016-09-27 17:19] LABS: Glucose,Whole Blood 114 mg/dL (75-99)
[2016-09-27] MEDS: SODIUM CHLORIDE 0.9% 1,000 ML IV SCH (17:21)
[2016-09-27] MEDS: ONDANSETRON 4 MG/2 ML VIAL IVP PRN (17:45)
[2016-09-27] MEDS: CYCLOBENZAPRINE 10 MG TAB PO SCH (20:27)
[2016-09-27] MEDS: PRAVASTATIN SODIUM 20 MG TAB PO SCH (20:27)
[2016-09-27 20:30] LABS: Glucose,Whole Blood 113 mg/dL (75-99)
[2016-09-27] MEDS: INSULIN GLARGINE 100 UNIT/ML 10 ML VIAL SQ SCH (20:31)
[2016-09-28] MEDS: HYDROmorphone 1 MG/ML 1 ML SYRINGE IV PRN ×2 (00:28→10:39)
[2016-09-28 06:26] LABS: Anisocytosis Slight; Basophils # (A) 0.1 k/uL (0-0.2); Basophils % (A) 1 %; CH 31.8; CHCM 30.8; Eosinophils # (A) 0.4 k/uL (0-0.7); Eosinophils % (A) 5 %; HCT 29.4 % (34.0-46.0); HDW 3.22; HGB 9.2 gm/dL (11.4-16.0); Hypochromasia Marked; Luc # (Auto) 0.16; Luc % (Auto) 2; Lymphocytes # (A) 0.7 k/uL (1.0-4.8); Lymphocytes % (A) 8 %; MCH 32.5 pg (25.0-35.0); MCHC 31.3 g/dL (31.0-37.0); MCV 103.8 fL (80.0-100.0); Macrocytosis Moderate; Mean Platelet Volume 8.3; Monocytes # (A) 0.5 k/uL (0-1.0); Monocytes % (A) 5 %; Neutrophils # (A) 7.1 k/uL (1.3-7.7); Neutrophils % (A) 79 %; RBC 2.83 m/uL (3.80-5.40); RDW 17.7 % (11.5-15.5); WBC (Perox) 9.37
[2016-09-28 06:29] LABS: Calcium 7.8 mg/dL (8.4-10.2); Potassium 4.4 mmol/L (3.5-5.1)
[2016-09-28 06:46] LABS: Glucose,Whole Blood 64 mg/dL (75-99)
[2016-09-28 07:14] LABS: Glucose,Whole Blood 66 mg/dL (75-99)
[2016-09-28 07:46] LABS: Glucose,Whole Blood 84 mg/dL (75-99)
[2016-09-28] MEDS: HEPARIN SODIUM,PORCINE 5,000 UNIT/ML 1 ML VIAL SQ SCH ×2 (09:57→21:16)
[2016-09-28] MEDS: MIDODRINE 5 MG TAB PO SCH ×3 (09:57→17:58)
[2016-09-28] MEDS: CALCIUM CARB-MAG CARB-FOLIC 1 EACH TAB PO SCH ×2 (09:58→12:17)
[2016-09-28] MEDS: ASPIRIN 81 MG CHEW PO SCH (09:58)
[2016-09-28] MEDS: metroNIDAZOLE 500 MG TAB PO SCH ×3 (09:58→21:15)
[2016-09-28] MEDS: GLIMEPIRIDE 1 MG TAB PO SCH (09:58)
[2016-09-28] MEDS: BACITRACIN 500 UNIT/GM OINT 28.4 GM TUBE TOPICAL SCH ×2 (09:59→21:53)
[2016-09-28] MEDS: GABAPENTIN 300 MG CAP PO SCH ×3 (09:59→21:16)
[2016-09-28] MEDS: SODIUM HYPOCHLORITE 0.5% 480 ML BOT MISCELLANE SCH (09:59)
[2016-09-28] MEDS: SEVELAMER 800 MG TAB PO SCH ×2 (09:59→17:58)
[2016-09-28] MEDS: CINACALCET 30 MG TAB PO SCH (09:59)
[2016-09-28] MEDS: INSULIN LISPRO (humaLOG) 300 UNIT/3 ML VIAL SQ SCH ×4 (10:00→21:16)
[2016-09-28 12:33] LABS: Glucose,Whole Blood 228 mg/dL (75-99)
--- NOTE | 2016-09-28 13:48 | P.PN ---
Subjective Principal diagnosis: This is a 76-year-old female with ESRD on dialysis Thursday was a Thursday. 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 She was dialyzed the day before yesterday and she is doing fairly well denies any complaints. No nausea vomiting diarrhea abdominal pain. No fever chills cough shortness of breath. Appetite is fair. Her pain is controlled except on the buttocks Objective - Vital Signs Vital signs: Vital Signs Temp 96.8 F L 09/28/16 07:00 Pulse 50 L 09/28/16 07:00 Resp 16 09/28/16 07:00 BP 102/45 09/28/16 07:00 Pulse Ox 98 09/28/16 07:00 Intake & Output 09/27/16 09/28/16 09/28/16 18:59 06:59 18:59 Intake Total 354 575 Output Total 100 Balance 354 475 Weight 79 kg 77.5 kg Intake: Oral 354 575 Output: Urine 50 Stool 50 Other: Voiding Method Ileal Conduit (Right) Ileal Conduit (Right) Ileal Conduit ( Right) # Voids 0 # Bowel Movements 1 0 On examination she is awake alert oriented comfortable HEENT exam no JVP neck is supple no facial asymmetry Lungs are clear to auscultation percussion good air entry bilaterally. Heart sounds are unremarkable for any murmur rub gallop Abdomen soft nontender Extremity examination reveals subcutaneous nodules on both right and left thigh but the right medial thigh has a obvious hard large nodule with redness on the skin and small areas of skin that are trying to open up. The right thigh has dressing on her own. She has tight skin on her legs suggestive of some mild edema. Neurologically awake alert oriented. - Labs CBC & Chem 7: 09/28/16 06:10 09/28/16 06:10 Labs: Abnormal Lab Results - Last 24 Hours (Table) 09/27/16 09/27/16 09/28/16 Range/Units 17:12 20:25 06:10 RBC (3.80-5.40) m/uL Hgb (11.4-16.0) gm/dL Hct (34.0-46.0) % MCV (80.0-100.0) fL RDW (11.5-15.5) % Plt Count (150-450) k/uL Lymphocytes # (1.0-4.8) k/uL BUN 31 H (7-17) mg/dL Creatinine 3.40 H (0.52-1.04) mg/dL Glucose 68 L (74-99) mg/dL POC Glucose (mg/dL) 114 H 113 H (75-99) mg/dL Calcium 7.8 L (8.4-10.2) mg/dL 09/28/16 09/28/16 09/28/16 Range/Units 06:10 06:44 07:13 RBC 2.83 L (3.80-5.40) m/uL Hgb 9.2 L (11.4-16.0) gm/dL Hct 29.4 L (34.0-46.0) % MCV 103.8 H (80.0-100.0) fL RDW 17.7 H (11.5-15.5) % Plt Count 115 L (150-450) k/uL Lymphocytes # 0.7 L (1.0-4.8) k/uL BUN (7-17) mg/dL Creatinine (0.52-1.04) mg/dL Glucose (74-99) mg/dL POC Glucose (mg/dL) 64 L 66 L (75-99) mg/dL Calcium (8.4-10.2) mg/dL 09/28/16 Range/Units 12:30 RBC (3.80-5.40) m/uL Hgb (11.4-16.0) gm/dL Hct (34.0-46.0) % MCV (80.0-100.0) fL RDW (11.5-15.5) % Plt Count (150-450) k/uL Lymphocytes # (1.0-4.8) k/uL BUN (7-17) mg/dL Creatinine (0.52-1.04) mg/dL Glucose (74-99) mg/dL POC Glucose (mg/dL) 228 H (75-99) mg/dL Calcium (8.4-10.2) mg/dL Microbiology - Last 24 Hours (Table) 09/25/16 15:03 Gram Stain - Preliminary Hip - Right Tissue Culture - Preliminary Proteus mirabilis Group D Enterococcus Pseudomonas aeruginosa Diphtheroid species 09/25/16 15:03 Gram Stain - Preliminary Hip - Right Tissue Culture - Preliminary Pseudomonas aeruginosa Group D Enterococcus Proteus mirabilis 09/23/16 19:05 Urine Culture - Final Urine,Clean Catch Proteus mirabilis Escherichia coli Pseudomonas aeruginosa 09/23/16 13:35 Blood Culture - Preliminary Blood No Growth after 96 hours 09/25/16 15:03 Anaerobic Culture - Preliminary Hip - Right 09/25/16 15:03 Anaerobic Culture - Preliminary Hip - Right Assessment and Plan Plan: impression. 1. ESRD on dialysis Thursday was a Thursday stable. 2. Calcifphylaxis mid right thigh medially and additional lesions or subcutaneous nodules on both thighs. 3. Diabetes mellitus. 4. Bilateral ostomies with history of endometrial cancer with colostomy urostomy status post chemo and radiation in the remote past. 5. Anemia hemoglobin trending down on Aranesp. Hemoglobin down from 10.1-8.9 this morning . Saturations 24% Recommendation. We'll proceed with treatment with sodium thiosulfate 25 g with each dialysis treatment at the last half an hour. Increase Aranesp Will increase the dialysis time to 4 hours from 3 hours 45 minutes. 2 calcium bath Discontinue all calcium tablets and a target for the serum calcium lower than normal
[2016-09-28] MEDS: SODIUM CHLORIDE 0.9% 1,000 ML IV SCH (16:05)
[2016-09-28 17:17] LABS: Glucose,Whole Blood 153 mg/dL (75-99)
[2016-09-28 21:10] LABS: Glucose,Whole Blood 154 mg/dL (75-99)
[2016-09-28] MEDS: CYCLOBENZAPRINE 10 MG TAB PO SCH (21:15)
[2016-09-28] MEDS: PRAVASTATIN SODIUM 20 MG TAB PO SCH (21:16)
[2016-09-28] MEDS: INSULIN GLARGINE 100 UNIT/ML 10 ML VIAL SQ SCH (21:16)
[2016-09-29 02:45] LABS: Glucose,Whole Blood 181 mg/dL (75-99)
--- NOTE | 2016-09-29 07:31 | PN ---
DATE OF SERVICE: 09/28/2016. PRESENTING COMPLAINT: Wound on the right hip. INTERVAL HISTORY: This patient presented with a wound on the right hip status post I&D. Today she is resting comfortably in bed. Tolerating her diet. Appears tired. Review of systems done for constitutional, cardiovascular, GI, pulmonary, with relevant findings as above. CURRENT MEDICATIONS: IV ( ). PHYSICAL EXAMINATION: VITAL SIGNS: Temperature 96.8, pulse 50 respiratory rate 16, blood pressure 102/45, oxygen saturation 98% on room air. GENERAL APPEARANCE: Patient lying in bed. No distress noted. EYES: Pupils equal. Conjunctivae normal. NECK: JVD not raised. Mass not palpable. LUNGS: Diminished bilaterally. Respiratory effort normal. CARDIOVASCULAR: First and second sounds noted. Trace edema. ABDOMEN: Soft, nontender. Colostomy and urostomy bags in place. Liver and spleen not palpable. PSYCHIATRY: Alert and oriented x3. Mood and affect are normal INVESTIGATIONS: Hemoglobin 9.2, platelet count 115, BUN 31, creatinine 3.40. Blood glucose 153. ASSESSMENT: 1. Right hip wound status post incision and drainage, present on admission, slow to respond. 2. End-stage kidney disease, on hemodialysis Thursday, Thursday and Thursday. 3. Diabetes mellitus type 2, chronically on insulin. 4. Hypoglycemia secondary to decreased appetite at dinner. 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 5. Chronic bilateral lower extremity deep vein thrombosis, chronically on anticoagulation. 6. Essential hypertension. 7. Primary osteoarthritis of multiple joints bilaterally. 8. Chronic coronary artery disease. 9. Chronic diverticulosis. 10. Hyperlipidemia. 11. Peripheral neuropathy from diabetes. 12. Chronic gait dysfunction uses a walker but mostly uses a wheelchair. 13. Secondary hyperparathyroidism. PLAN: Patient has had low blood glucose 68 and 63 respectively in the morning hours of the past 2 mornings. DC'd Amaryl and encouraged patient to eat and also to let nursing now if she is not feeling up to eating. Will continue to monitor closely. Patient seen and examined by nurse practitioner, Ludmila Tavarez, and all elements of the case discussed with attending, Dr. Fulton. I performed a history and physical examination of this patient and discussed the same with the dictator. I agree with the dictator's note. Any additional findings/opinions, etc. will be noted.
[2016-09-29 07:39] LABS: Glucose,Whole Blood 134 mg/dL (75-99)
[2016-09-29 07:58] LABS: Anisocytosis Slight; Basophils % (A) 0 %; CH 31.4; CHCM 30.6; Eosinophils # (A) 0.3 k/uL (0-0.7); Eosinophils % (A) 3 %; HCT 29.2 % (34.0-46.0); HDW 3.06; HGB 9.3 gm/dL (11.4-16.0); Hypochromasia Marked; Luc # (Auto) 0.16; Luc % (Auto) 1; Lymphocytes # (A) 0.6 k/uL (1.0-4.8); Lymphocytes % (A) 5 %; MCH 32.6 pg (25.0-35.0); MCHC 31.7 g/dL (31.0-37.0); Macrocytosis Moderate; Mean Platelet Volume 7.7; Monocytes # (A) 0.7 k/uL (0-1.0); Monocytes % (A) 6 %; Neutrophils # (A) 9.8 k/uL (1.3-7.7); Neutrophils % (A) 85 %; RBC 2.84 m/uL (3.80-5.40); RDW 17.3 % (11.5-15.5); WBC 11.6 k/uL (3.8-10.6); WBC (Perox) 12.26
--- NOTE | 2016-09-29 08:00 | PN ---
DATE OF SERVICE: 09/28/2016 Reason for followup is right hip pressure ulcer infected. INTERVAL HISTORY: The patient is afebrile. He is currently feeling better, breathing comfortably. Denies having any significant chest pain or shortness of breath or cough or any worsening pain of the right hip wound. On examination, the blood pressure 99/46 with a pulse of 52, temperature 96.5. She is 98% on room air. General description is an elderly female, lying in bed in no distress. RESPIRATORY SYSTEM: Unlabored breathing, Clear to auscultation anteriorly. HEART: S1 and S2. Regular rate and rhythm. ABDOMEN: Soft. No tenderness. Right hip wound is currently dressed, ( ). LABS: Wound culture finalized with Enterococcus, Proteus and Pseudomonas aeruginosa. DIAGNOSTIC IMPRESSION AND PLAN: Patient with infected right hip wound, status post debridement. Culture with multiple pathogens. Patient does have history of PENICILLIN allergy. She is currently covered with Vanco and Fortaz which she is going to continue for another 3 weeks along with oral Flagyl. Local wound care currently with Aquacel Silver. Continue supportive care.
[2016-09-29] MEDS: INSULIN LISPRO (humaLOG) 300 UNIT/3 ML VIAL SQ SCH ×4 (08:08→22:16)
[2016-09-29 08:40] LABS: Calcium 7.7 mg/dL (8.4-10.2); Potassium 5.4 mmol/L (3.5-5.1)
--- NOTE | 2016-09-29 09:33 | PN ---
DATE OF SERVICE: 09/28/2016 ATTENDING NOTE: This patient was seen and examined by me on 09/28/2016. I reviewed the note of my nurse practitioner, Ms. Tavarez. Discussed details below. Patient has got a right hip wound, status post I&D following herpes zoster. Cultures are showing multiple organisms. Patient is comfortable, tolerating a diet. On examination, LUNGS: Decreased breath sounds. CARDIOVASCULAR: First and second seconds are normal, wound on the right hip. Cultures are noted to be multifactorial. ASSESSMENT: 1. Right hip, wound with multiple organs growing. 2. End-stage renal hemodialysis. 3. Hypoglycemia. PLAN: Antibiotics will be coordinated by Dr. Tsang. Hopefully, patient can be discharged tomorrow. Patient's sugars have been running low and patient's Amaryl has been discontinued.
--- NOTE | 2016-09-29 10:14 | P.PN ---
Subjective 76-year-old female being seen and evaluated this morning. Patient is postop excisional debridement of the right hip wound per Dr. bunch day 5 currently the patient is receiving hemodialysis. New events. Has remained afebrile. The dressing to the right hip dry the white count this morning is 11.6 the discharge plan is in progress. Once patient is medically stable patient can be discharged from a surgical perspective and will follow-up with Dr. Bunch in the wound care center Objective - Vital Signs Vital signs: Vital Signs Temp 98.8 F 09/29/16 07:00 Pulse 68 09/29/16 07:00 Resp 16 09/29/16 07:00 BP 94/42 09/29/16 07:00 Pulse Ox 91 L 09/29/16 07:00 Intake & Output 09/28/16 09/29/16 09/29/16 18:59 06:59 18:59 Output Total 100 Balance -100 Weight 80 kg Output: Urine 100 Other: Voiding Method Ileal Conduit (Right) Ileal Conduit (Right) # Voids 1 # Bowel Movements 300 - Exam Physical exam 76-year-old female resting in bed currently receiving hemodialysis awake appears in no acute distress oriented 3 where the plan of care lungs essentially clear adequate air movement Heart S1-S2 audible no voiced complaints of chest pain Abdomen soft nontender ostomy scant amount of stool urostomy scant amount of drainage not distended Extremities no edema - Labs CBC & Chem 7: 09/29/16 07:00 09/29/16 07:00 Labs: Abnormal Lab Results - Last 24 Hours (Table) 09/28/16 09/28/16 09/28/16 Range/Units 12:30 17:15 21:05 WBC (3.8-10.6) k/uL RBC (3.80-5.40) m/uL Hgb (11.4-16.0) gm/dL Hct (34.0-46.0) % MCV (80.0-100.0) fL RDW (11.5-15.5) % Plt Count (150-450) k/uL Neutrophils # (1.3-7.7) k/uL Lymphocytes # (1.0-4.8) k/uL Sodium (137-145) mmol/L Potassium (3.5-5.1) mmol/L BUN (7-17) mg/dL Creatinine (0.52-1.04) mg/dL Glucose (74-99) mg/dL POC Glucose (mg/dL) 228 H 153 H 154 H (75-99) mg/dL Calcium (8.4-10.2) mg/dL 09/29/16 09/29/16 09/29/16 Range/Units 02:43 07:00 07:00 WBC 11.6 H (3.8-10.6) k/uL RBC 2.84 L (3.80-5.40) m/uL Hgb 9.3 L (11.4-16.0) gm/dL Hct 29.2 L (34.0-46.0) % MCV 103.0 H (80.0-100.0) fL RDW 17.3 H (11.5-15.5) % Plt Count 143 L (150-450) k/uL Neutrophils # 9.8 H (1.3-7.7) k/uL Lymphocytes # 0.6 L (1.0-4.8) k/uL Sodium 135 L (137-145) mmol/L Potassium 5.4 H (3.5-5.1) mmol/L BUN 44 H (7-17) mg/dL Creatinine 4.18 H (0.52-1.04) mg/dL Glucose 139 H (74-99) mg/dL POC Glucose (mg/dL) 181 H (75-99) mg/dL Calcium 7.7 L (8.4-10.2) mg/dL 09/29/16 Range/Units 07:36 WBC (3.8-10.6) k/uL RBC (3.80-5.40) m/uL Hgb (11.4-16.0) gm/dL Hct (34.0-46.0) % MCV (80.0-100.0) fL RDW (11.5-15.5) % Plt Count (150-450) k/uL Neutrophils # (1.3-7.7) k/uL Lymphocytes # (1.0-4.8) k/uL Sodium (137-145) mmol/L Potassium (3.5-5.1) mmol/L BUN (7-17) mg/dL Creatinine (0.52-1.04) mg/dL Glucose (74-99) mg/dL POC Glucose (mg/dL) 134 H (75-99) mg/dL Calcium (8.4-10.2) mg/dL Microbiology - Last 24 Hours (Table) 09/23/16 13:35 Blood Culture - Preliminary Blood No Growth after 120 hours 09/25/16 15:03 Gram Stain - Final Hip - Right Tissue Culture - Final Pseudomonas aeruginosa Enterococcus faecalis Proteus mirabilis 09/25/16 15:03 Gram Stain - Final Hip - Right Tissue Culture - Final Proteus mirabilis Enterococcus faecalis Pseudomonas aeruginosa Diphtheroid species Assessment and Plan Plan: Impression Present on admission infected right hip wound End-stage renal disease on hemodialysis 3 times a week Endometrial cancer with ostomy urostomy Chronic hypotension maintained on midodrine Anemia of chronic illness Chronic nonhealing right hip wound Status post debridement of a stage III decubitus ulcer of the right hip with Sharp excisional debridement of the decubitus ulcer using electrocautery, scalpel and curret done on September 25 Plan wound care per Dr. Bunch Dakin solution full-strength twice a day .stop Aquasol silver Surgically patient is felt to be appropriate to be discharged defer to the timing of the discharge to the attending Patient's to follow-up in the [facility] wound care center next week with Dr. Bunch IV antibiotics per infectious disease dr stout Medical management as ordered Pain control No further surgical recommendations at this time will follow patient on an as- needed basis The above dictated assessment and findings were discussed with dr julio c Torres and the plan of care have been dictated as directed. Riya Moore nurse practitioner acting as a scribe for dr bunch
[2016-09-29 11:23] LABS: Glucose,Whole Blood 104 mg/dL (75-99)
[2016-09-29] MEDS: SODIUM THIOSULFATE 12.5 GM/50 ML VIAL IV SCH ×2 (11:37→12:44)
[2016-09-29] MEDS: HEPARIN SODIUM,PORCINE 5,000 UNIT/ML 1 ML VIAL SQ SCH ×2 (12:45→20:55)
[2016-09-29] MEDS: metroNIDAZOLE 500 MG TAB PO SCH ×3 (12:45→22:17)
[2016-09-29] MEDS: SEVELAMER 800 MG TAB PO SCH ×3 (12:46→16:46)
[2016-09-29] MEDS: MIDODRINE 5 MG TAB PO SCH ×4 (12:46→18:16)
[2016-09-29] MEDS: ASPIRIN 81 MG CHEW PO SCH (12:47)
[2016-09-29] MEDS: CINACALCET 30 MG TAB PO SCH (12:47)
[2016-09-29] MEDS: GABAPENTIN 300 MG CAP PO SCH ×3 (12:47→20:57)
[2016-09-29] MEDS: BACITRACIN 500 UNIT/GM OINT 28.4 GM TUBE TOPICAL SCH ×2 (12:48→20:55)
[2016-09-29] MEDS: HYDROmorphone 1 MG/ML 1 ML SYRINGE IV PRN (13:03)
[2016-09-29 14:18] VITALS: BMI 34.4
[2016-09-29] MEDS: SODIUM HYPOCHLORITE 0.5% 480 ML BOT MISCELLANE SCH ×2 (16:42→20:55)
[2016-09-29] MEDS: SODIUM CHLORIDE 0.9% 1,000 ML IV SCH (16:44)
[2016-09-29 17:10] LABS: Glucose,Whole Blood 111 mg/dL (75-99)
--- NOTE | 2016-09-29 19:38 | PN ---
DATE OF SERVICE: 09/29/2016 REASON FOR FOLLOWUP: Right hip infected wound. INTERVAL HISTORY: The patient is afebrile. He has been complaining of some cramping, especially with dialysis which she underwent this morning. No nausea, vomiting. No significant chest pain or cough. Some pain to the right hip wound. On examination, blood pressure is 111/48 with a pulse of 68, temperature 98.7. She is 92% on room air. GENERAL DESCRIPTION: An elderly female, lying in bed in no distress. RESPIRATORY SYSTEM: Unlabored breathing. Clear to auscultation anteriorly. HEART: S1, S2 regular. ABDOMEN: No tenderness. LABS: Hemoglobin 9.2, WBC 9.6, with a BUN of 44, creatinine 4.1. DIAGNOSTIC IMPRESSION: Patient with right hip infected wound. Culture not available. The patient does have a PENICILLIN allergy. We will have the patient continue on vancomycin pharmacy to dose along with Fortaz 1 gram post dialysis for 3 weeks oral Flagyl 5 mg 3 times daily. Local wound care to continue per Surgery. She is stable to go home from ID standpoint. Discussed with patient.
[2016-09-29] MEDS: PRAVASTATIN SODIUM 20 MG TAB PO SCH (20:56)
[2016-09-29] MEDS: CYCLOBENZAPRINE 10 MG TAB PO SCH (20:58)
[2016-09-29] MEDS ORDERED: VANCOMYCIN 1,250 MG in SODIUM CHLORIDE 0.9% 250 ML IVPB ONE (21:00)
[2016-09-29 21:20] LABS: Glucose,Whole Blood 142 mg/dL (75-99)
--- NOTE | 2016-09-29 21:25 | PN ---
Patient is seen on dialysis. She is tolerating her treatment well. She is complaining of hip pain and back pain. On examination, blood pressure is 111/48, heart rate 68 per minute. She is afebrile. Examination of the lower extremities shows no significant edema. ABDOMEN: Soft, nontender with ileostomy noted. BEFORE [employer] WORKER exam is grossly intact. Labs show sodium 135, potassium 5.4, hemoglobin 9.3 g/dL. ASSESSMENT: 1. End-stage renal disease on hemodialysis on a Thursday, Thursday, Thursday schedule via left arm AV fistula. 2. Lesions on the right thigh suggestive of calcified abscess. 3. Multiple abdominal surgeries with ileostomy and urostomy. 4. Anemia of chronic disease, multifactorial. PLAN: Hemodialysis today. The patient will be maintained on sodium ( ) sulfate. This will be continued as outpatient during her treatments.
[2016-09-29] MEDS: INSULIN GLARGINE 100 UNIT/ML 10 ML VIAL SQ SCH (22:16)
--- NOTE | 2016-09-30 05:28 | PN ---
DATE OF SERVICE: 09/29/2016 PRESENTING COMPLAINT: Wound on the right hip. INTERVAL HISTORY: This is a patient that presented with a wound on the right hip, status post I&D of the same. Today, she rests comfortably in bed, tolerating her diet, appears tired, complaining of pain, unable to receive treatment secondary to low blood pressure while on hemodialysis. Review of systems done for constitutional, cardiovascular, GI, pulmonary, integument with relevant findings as above. CURRENT MEDICATIONS: IV ceftazidime, Flagyl 500 t.i.d. PHYSICAL EXAM: VITAL SIGNS: Temperature 98.8, pulse 68, respiratory rate 18, blood pressure 94/42, oxygen saturation 91% on room air. GENERAL APPEARANCE: Appears uncomfortable secondary to unrelieved pain secondary to low blood pressure. EYES: Pupils equal. Conjunctivae normal. NECK: JVD not raised. Mass not palpable. LUNGS: Diminished bilaterally. RESPIRATORY: Effort normal, unlabored. CARDIOVASCULAR: First and second sounds noted. Trace edema. ABDOMEN: Soft, nontender. Liver and spleen not palpable. PSYCHIATRY: Alert and oriented x3. Mood and affect anxious appearing. INVESTIGATIONS: White blood cell count 11.6, hemoglobin 9.3, platelet count 143. Sodium 135, potassium 5.4, BUN 44, creatinine 4.18. Blood glucose 139. ASSESSMENT: 1. Right hip wound following herpes zoster, status post incision and drainage, present on admission, slow to respond. 2. End-stage kidney disease on hemodialysis Thursday, Thursday and Thursday. 3. Diabetes mellitus type 2, chronically on insulin. 4. Hypoglycemia secondary to oral hypoglycemics. Discontinued Amaryl. 5. Chronic bilateral lower extremity deep vein thrombosis, chronically on anticoagulation. 6. Essential hypertension. 7. Primary osteoarthritis of multiple joints bilaterally. 8. Chronic coronary artery disease. 9. Chronic diverticulosis. 10. Hyperlipidemia. 11. Peripheral neuropathy from diabetes. 12. Chronic gait dysfunction uses a walker mostly uses a wheelchair. 13. Secondary hyperparathyroidism. PLAN: Patient's blood glucose improved today since the cessation of Amaryl. Transfer pending, possibly to [facility] in the next 1 to 2 days. Will continue to monitor closely. Patient was seen and examined by nurse practitioner, Ludmila Tavarez, and all elements of the case discussed with attending, Dr. Fulton.
[2016-09-30 07:29] LABS: Glucose,Whole Blood 99 mg/dL (75-99)
[2016-09-30 07:48] VITALS: PULSE 67; RESP 16; TEMP 97.3
--- NOTE | 2016-09-30 07:58 | PN ---
DATE OF SERVICE: 09/29/2016 ATTENDING NOTE: This patient was seen and examined by me earlier today. I reviewed the note of my nurse practitioner, Ms. Tavarez. Discussed additional findings below. Patient has developed a right hip wound. Comfortable. Tolerating a diet. ON EXAMINATION: LUNGS: Decreased breath sounds. CARDIOVASCULAR: First and second seconds normal. PSYCH: Alert and oriented x3. ASSESSMENT: Right hip wound, status post I&D where patient earlier had herpes zoster. Discussed with geriatric social worker. The patient looking at going to the ECF. Antibiotics as per Dr. Tsang. Will follow.
[2016-09-30 08:13] LABS: Anisocytosis Slight; Basophils # (A) 0.1 k/uL (0-0.2); Basophils % (A) 1 %; CH 31.7; CHCM 30.7; Eosinophils # (A) 0.4 k/uL (0-0.7); Eosinophils % (A) 4 %; HCT 30.5 % (34.0-46.0); HDW 3.15; HGB 9.3 gm/dL (11.4-16.0); Hypochromasia Marked; Luc % (Auto) 2; Lymphocytes # (A) 0.6 k/uL (1.0-4.8); Lymphocytes % (A) 6 %; MCH 31.7 pg (25.0-35.0); MCHC 30.7 g/dL (31.0-37.0); MCV 103.5 fL (80.0-100.0); Macrocytosis Moderate; Monocytes # (A) 0.5 k/uL (0-1.0); Monocytes % (A) 5 %; Neutrophils # (A) 8.3 k/uL (1.3-7.7); Neutrophils % (A) 82 %; RBC 2.94 m/uL (3.80-5.40); RDW 17.4 % (11.5-15.5); WBC 10.1 k/uL (3.8-10.6); WBC (Perox) 10.08
[2016-09-30] MEDS: INSULIN LISPRO (humaLOG) 300 UNIT/3 ML VIAL SQ SCH ×2 (08:13→12:43)
[2016-09-30] MEDS: MIDODRINE 5 MG TAB PO SCH ×2 (08:13→13:07)
[2016-09-30] MEDS: SEVELAMER 800 MG TAB PO SCH ×2 (08:14→13:07)
[2016-09-30] MEDS: ASPIRIN 81 MG CHEW PO SCH (08:16)
[2016-09-30] MEDS: GABAPENTIN 300 MG CAP PO SCH (08:17)
[2016-09-30] MEDS: CINACALCET 30 MG TAB PO SCH (08:17)
[2016-09-30] MEDS: BACITRACIN 500 UNIT/GM OINT 28.4 GM TUBE TOPICAL SCH (08:17)
[2016-09-30] MEDS: SODIUM HYPOCHLORITE 0.5% 480 ML BOT MISCELLANE SCH (08:18)
[2016-09-30] MEDS: metroNIDAZOLE 500 MG TAB PO SCH (08:18)
[2016-09-30] MEDS: HEPARIN SODIUM,PORCINE 5,000 UNIT/ML 1 ML VIAL SQ SCH (08:18)
[2016-09-30 08:28] LABS: Calcium 7.7 mg/dL (8.4-10.2)
[2016-09-30] MEDS: ONDANSETRON 4 MG/2 ML VIAL IVP PRN (09:34)
[2016-09-30] MEDS: HYDROmorphone 1 MG/ML 1 ML SYRINGE IV PRN (11:22)
[2016-09-30 12:08] LABS: Glucose,Whole Blood 134 mg/dL (75-99)
[2016-09-30 13:09] VITALS: BP 115/57
[2016-09-30] MEDS: SODIUM CHLORIDE 0.9% 1,000 ML IV SCH (13:20)
--- NOTE | 2016-09-30 13:54 | PN ---
DATE OF SERVICE: 09/30/2016 Reason for followup is infected right hip wound. INTERVAL HISTORY: The patient is afebrile. Has been feeling better. Is complaining of pain in the wound area, but no worsening. She did have some new lesion on the right mid-thigh area. Patient denies significant chest pain, no cough. Currently awaiting for antibiotic evaluation for discharge. On examination, blood pressure is 114/54 with a pulse of 57, temperature 97.8, she is 92% on room air. General description is an elderly female, up in the chair in no distress. RESPIRATORY SYSTEM: Unlabored breathing. Clear to auscultation anteriorly. HEART: S1, S2. Regular rate and rhythm. ABDOMEN: Soft, no tenderness. Examination of the right hip wound has resolved, we have some slough tissue at the base. There is no erythema or drainage. LABS: Hemoglobin 9.3, white count 10.1 with a BUN of 28, creatinine of 3.0. DIAGNOSTIC IMPRESSION AND PLAN: Patient with right hip infected wound, status post debridement. The wound still has some slough tissue and may benefit from limited debridement with the Santyl followed by moist dressing. As far as antibiotic therapy, she will given vancomycin and Fortaz to finish therapy for 3 weeks along with oral Flagyl and outpatient followup.
--- NOTE | 2016-09-30 16:10 | DS ---
DATE OF ADMISSION: 09/23/2016 DATE OF DISCHARGE: 09/30/2016 FINAL DIAGNOSIS(ES): 1. Right hip wound, probably secondary to herpes zoster, present on admission. 2. End-stage kidney disease, on hemodialysis Thursday, Thursday and Thursday. 3. Diabetes mellitus, type II, on chronically on insulin. 4. Chronic bilateral lower extremity deep vein thrombosis, chronically on anticoagulation. 5. Essential hypertension. 6. Primary osteoarthritis, multiple joints bilaterally. 7. Chronic coronary artery disease. 8. Chronic diverticulosis. 9. Hyperlipidemia. 10. Peripheral neuropathy from diabetes. 11. Chronic gait dysfunction, uses a walker but mostly uses a wheelchair. 12. Secondary hyperparathyroidism. Consultants Dr. Angelo from general surgery, Dr. Rainey from nephrology, Dr. Atwood from cardiology Dr. Tsang from infectious disease. HOSPITAL COURSE: Patient presented to the hospital with a wound infection for which he had been seen outpatient at the wound care center, status post an episode of shingles. Blood cultures taken. General surgery consulted. Decision made to do an incision and drainage of the right hip wound. Blood cultures taken directly from the wound revealing Proteus Mirabilis Enterococcus faecalis, pseudomonas aeruginosa and diphtheroid species. Patient was placed on antibiotics of Ceftazidime and Flagyl. Patient will require at least 3 to 4 weeks of continued antibiotic therapy. Therefore patient will be discharged to the halfway at [facility]. GENERAL APPEARANCE: Patient is sitting up, awake, alert, calm and cooperative. RESPIRATORY: Effort normal. ABDOMEN: Soft, nontender. Liver and spleen not palpable. MUSCULOSKELETAL: Patient has a cast to her left forearm. This was prior to admission from sustained a fall at the halfway. Right hip wound dressed with prescribed dressing materials. Wound is healing well, beefy red in appearance. No purulence noted. DISCHARGE MEDICATIONS: 1. Atenolol 12.5 mg p.o. daily. 2. Neurontin 300 mg p.o. t.i.d. 3. Amaryl 1.5 mg p.o. b.i.d. 4. Lantus 12 units subcu at bedtime. 5. Pravachol 20 mg p.o. at bedtime. 6. Aspirin 81 mg p.o. daily. 7. Flexeril 10 mg p.o. at bedtime. 8. Renagel 400 mg p.o. daily. 9. Beano 600 units p.o. a.c. t.i.d. 10. Colace 100 mg p.o. daily. 11. Vitamin D2 50,000 units p.o. on Mondays. 12. MagneBind one dose p.o. directed. 13. Midodrine 10 mg p.o. Thursday, Thursday and Thursday. 14. Bacitracin appointment applied to wound. 15. Sensipar 30 mg p.o. daily. 16. Fortaz 1 gram IV piggyback Thursday, Thursday and Thursday. 17. Flagyl 500 mg p.o. t.i.d. DISPOSITION: Patient requires 3 to 4 weeks of antibiotic therapy as well as additional strengthening for patient to return home. Therefore being discharged to [facility] for antibiotic therapy and rehabilitation. Patient seen and examined by nurse practitioner, Ludmila Tavarez, and all the elements of the case discussed with attending, Dr. Fulton.
[2016-10-01] MEDS ORDERED: DARBEPOETIN ALFA 60 MCG/0.3 ML SYRINGE SQ SCH (09:00)
--- NOTE | 2016-10-01 10:33 | PN ---
DATE OF SERVICE: 09/30/2016 The patient is seen for follow-up for end-stage renal disease. She is currently being discharged. The patient will be maintained on sodium thiosulfate as outpatient for calciphylaxis. On examination, blood pressure was 115/57, heart rate 67 per minute. She is afebrile. Examination shows no significant crackles are heard. Heart sounds are heard. Abdomen is obese. There are chronic skin changes noted in the lower extremities. I did not examine the lesions on her thighs. [employer] ENGINEER exam is grossly intact. Labs show hemoglobin 9.3, serum creatinine of 3.0, potassium 5.0, calcium is 7.7. ASSESSMENT: 1. End-stage renal disease on hemodialysis on a Thursday, Thursday, Thursday schedule. 2. Calciphylaxis. Will maintain patient on sodium thiosulfate as outpatient. 3. Right hip wound, maintained on antibiotics. The patient will be on Fortaz. We can give 2 grams with every dialysis treatment. PLAN: Hemodialysis tomorrow as outpatient. Will maintain patient on sodium thiosulfate as outpatient for calciphylaxis.
--- NOTE | 2016-10-02 10:17 | DS ---
DATE OF ADMISSION: 09/23/2016 DATE OF DISCHARGE: 09/30/2016 ATTENDING NOTE: I saw and examined this patient on 09/30/2016. The patient doing better, comfortable. On exam, LUNGS: Decreased breath sounds. CARDIOVASCULAR: First and second sounds are normal. LABS: Noted. Patient to complete antibiotics as per Dr. Tsang. DISPOSITION: ECF. The rest as per note of my nurse practitioner. Discharge planning more than 35 minutes.
== END 2016-09-30 14:06 | DRG 570 ==
LOC: EC 13:00 → 4MS4W 15:01
PROVIDERS: ADMIT Hospitalist; ATTEND Hospitalist
PROC: 5A1D60Z (ICD-10-PCS; 2016-09-24)
PROC: 0JB90ZZ Excision of Buttock Subcutaneous Tissue and Fascia, Open Approach (ICD-10-PCS; principal; 2016-09-25 12:45)
DX: S71.001A Unspecified open wound, right hip, initial encounter (principal); N18.6 End stage renal disease; N25.81 Secondary hyperparathyroidism of renal origin; I12.0 Hypertensive chronic kidney disease with stage 5 chronic kidney disease or end stage renal disease; I82.503 Chronic embolism and thrombosis of unspecified deep veins of lower extremity, bilateral; I95.89 Other hypotension; E11.22 Type 2 diabetes mellitus with diabetic chronic kidney disease; E11.42 Type 2 diabetes mellitus with diabetic polyneuropathy; E11.649 Type 2 diabetes mellitus with hypoglycemia without coma; B02.9 Zoster without complications; E83.59 Other disorders of calcium metabolism; B96.4 Proteus (mirabilis) (morganii) as the cause of diseases classified elsewhere; B96.5 Pseudomonas (aeruginosa) (mallei) (pseudomallei) as the cause of diseases classified elsewhere; D63.1 Anemia in chronic kidney disease; B95.2 Enterococcus as the cause of diseases classified elsewhere; M19.91 Primary osteoarthritis, unspecified site; K44.9 Diaphragmatic hernia without obstruction or gangrene; E78.5 Hyperlipidemia, unspecified; R26.9 Unspecified abnormalities of gait and mobility; K57.90 Diverticulosis of intestine, part unspecified, without perforation or abscess without bleeding; I25.10 Atherosclerotic heart disease of native coronary artery without angina pectoris; Z99.2 Dependence on renal dialysis; Z93.3 Colostomy status; Z93.6 Other artificial openings of urinary tract status; Z85.42 Personal history of malignant neoplasm of other parts of uterus; Z90.710 Acquired absence of both cervix and uterus; Z88.0 Allergy status to penicillin; Z88.1 Allergy status to other antibiotic agents; Z98.42 Cataract extraction status, left eye; Z98.41 Cataract extraction status, right eye; Z88.9 Allergy status to unspecified drugs, medicaments and biological substances; Z96.653 Presence of artificial knee joint, bilateral; Z86.711 Personal history of pulmonary embolism; Z86.14 Personal history of Methicillin resistant Staphylococcus aureus infection; Z86.010 Personal history of colon polyps; Z79.82 Long term (current) use of aspirin; Z79.4 Long term (current) use of insulin; Z79.84 Long term (current) use of oral hypoglycemic drugs; Z79.899 Other long term (current) drug therapy
CPT/HCPCS: 11042; 11045; 36415; 71010; 80048; 80053; 80202; 81001; 82728; 83036; 83540; 83550; 83605; 84100; 85025; 85610; 86140; 86704; 86706; 87040; 87070; 87075; 87077; 87086; 87186; 87205; 87340; 88304; 90935; 93306; 96361; 96365; 96366; 96367; 99284